=== PATIENT | female | born 1965 | race American Indian/Alaskan Native ===

== ENCOUNTER 2017-03-19 05:54 | Day surgery (SDC) | payer MEDICAID, OTHER ==
[~2017-03-19 05:54] MED LIST: Midazolam 1 MG/ML 2 ML SDV ONE; fentaNYL 100 MCG/2 ML SDV ONE
[2017-03-19] MEDS ORDERED: Sodium Chloride 0.9% 10 ML Syringe FLUSH PRN (06:00)
[2017-03-19] MEDS ORDERED: Dextrose 5%-0.45% NaCl 1,000 ML IV SCH (06:00)
[2017-03-19] MEDS ORDERED: fentaNYL 100 MCG/2 ML SDV IV ONE ×3 (07:26→16:29)
[2017-03-19] MEDS ORDERED: Midazolam 1 MG/ML 2 ML SDV IV ONE ×3 (07:27→16:29)
--- NOTE | 2017-03-19 08:08 | OR ---
DATE: 03/19/2017 PROCEDURES: Esophagogastroduodenoscopy and multiple pinch biopsies. INSTRUMENT USED: GIF-H180 Olympus video panendoscope. PREMEDICATIONS: No oral topical anesthesia used. Fentanyl 100 mcg intravenous, Versed 2 mg intravenous. Nasal 2 L O2 cannula. The procedure was done under pulse oximetry, BP recording, and court monitor. INDICATION: The patient with chronic diarrhea and Hemoccult-positive stools. Esophagogastroduodenoscopy is performed for detection of any active erosive lesions, Can esophagus and/or malignancy also under consideration, H. pylori status to be determined, small bowel biopsies to be obtained for any evidence of celiac disease, endoscopic hemostasis therapy if needed. DESCRIPTION OF PROCEDURE: The scope was passed with ease. Adequate visualization of the esophagus was made from proximal to distal areas. No upper esophageal lesions identified. No distal esophageal stricture. No uphill or downhill esophageal varices. No Nadja-Granados tear. No evidence of erosive esophagitis by Beckwourth criteria. No esophageal polyp or tumor mass identified. Z-line was seen at around 38 cm distal to the oral verge, configuration consistent with grade 1 by ZAP classification. No proximal gastric varices noted. Gastric fundus examination by retroflexion showed no polypoid lesions. No gastric ulcer, malignant mass, or vascular ectasia identified. Scattered gastric antral erosions were noted without bleeding from them. Duodenal bulb showed no ulcer. Visualized second part of the duodenum was unremarkable. Multiple pinch biopsies, 4 in number were taken from different areas of the second part of the duodenum, tissues were also obtained from the duodenal bulb at 9 and 12 o'clock positions and sent for any histopathologic evidence of celiac disease. Multiple pinch biopsies were also taken from the gastric antrum and proximal body and sent for PyloriTek test for H. pylori and histopathology. No bleeding was noted from any of the visualized areas at the completion of examination. Photographs were taken of the duodenal bulb, gastric antrum, fundus, and distal esophagus. IMPRESSION: Gastric antral erosions. The patient tolerated the procedure well. [facility] /[id number]
[2017-03-19 09:57] VITALS: BP 114/61
--- NOTE | 2017-03-19 14:08 | LETTER ---
03/19/2017 YRN [facility] [address] [place] [address] RE: ESPERANZA LONDON : 1965 Dear Wes: Ms. Esperanza London had esophagogastroduodenoscopy done this morning and she tolerated the procedure well. I herewith send a copy of the endoscopy note and photographs for your review. She is recommended to keep away from gastric irritants and is put on omeprazole 20 mg p.o. daily. Thank you. Sincerely, [facility] /[id number]
== END 2017-03-19 10:17 | disposition home or self-care (01) ==
LOC: DL.ENDO 05:54
PROVIDERS: ATTEND Internal Medicine Gastroenterology
DX: K29.50 Unspecified chronic gastritis without bleeding (principal); E66.9 Obesity, unspecified; E03.9 Hypothyroidism, unspecified; F32.9 Major depressive disorder, single episode, unspecified; J45.909 Unspecified asthma, uncomplicated; Z72.0 Tobacco use; Z90.49 Acquired absence of other specified parts of digestive tract; Z88.1 Allergy status to other antibiotic agents; Z88.8 Allergy status to other drugs, medicaments and biological substances; F17.210 Nicotine dependence, cigarettes, uncomplicated
CPT/HCPCS: 43239; 87077; J2250; J3010; J7042

== ENCOUNTER 2017-03-21 05:28 | Day surgery (SDC) | payer MEDICAID ==
[~2017-03-21 05:28] MED LIST changes: +Dextrose 5%-0.45% NaCl 1,000 ML IV SCH; -Midazolam 1 MG/ML 2 ML SDV ONE; +Sodium Chloride 0.9% 10 ML Syringe FLUSH PRN; -fentaNYL 100 MCG/2 ML SDV ONE
[2017-03-21] MEDS ORDERED: fentaNYL 100 MCG/2 ML SDV ONE (06:15)
[2017-03-21] MEDS ORDERED: Midazolam 1 MG/ML 2 ML SDV ONE (06:17)
[2017-03-21] MEDS ORDERED: fentaNYL 100 MCG/2 ML SDV IV ONE ×5 (06:27→14:43)
[2017-03-21] MEDS ORDERED: Midazolam 1 MG/ML 2 ML SDV IV ONE ×7 (06:28→14:43)
--- NOTE | 2017-03-21 09:05 | OR ---
DATE: 03/21/2017 PROCEDURE: Total colonoscopy, NBI, cold snare polypectomy, and multiple pinch biopsies. INSTRUMENT USED: CF-H180AL Olympus video colonoscope. PREMEDICATIONS: Fentanyl 150 mcg intravenous, Versed 4 mg intravenous. Nasal O2 cannula. The procedure was done under pulse oximetry, BP recording, and surveillance monitor. INDICATION: The patient with chronic diarrhea and abdominal pain, unexplained, and not responsive to medical measures. Colonoscopic examination is done for detection of any polypoid lesions and removal, biopsies to be obtained for microscopic colitis, endoscopic hemostasis therapy if needed. DESCRIPTION OF PROCEDURE: Initial rectal exam was unremarkable. Rigid anoscopy was normal. The colonoscope was passed with ease. Numerous scattered diverticula were noted in the distal left colon along with some deformity. The scope was passed with ease up to the ileocecal area, photographs were taken of the normal-appearing cecum, identified by double-bulged ileocecal folds. No bleeding was noted from any of the visualized areas at the commencement of the examination. No stricture. No vascular ectasia. No large isolated ulcerations seen. No evidence of diffuse inflammatory bowel disease in the form of friability, contact bleeding, or ulcerations. Probing the proximal sides of folds and flexures, using adequate distention and clearing up the stool material, withdrawal of the scope was made. Multiple pinch biopsies were taken from the normal-appearing mucosa of the mid transverse colon, mid descending colon, and rectosigmoid, and sent for any histopathologic evidence of microscopic colitis. In the distal descending colon, 3 mm sized benign- appearing polyp was noted, NBI views were obtained, photographs were taken, cold snare polypectomy was done, the tissue was retrieved and sent for histopathology. No bleeding was noted any of the visualized areas at the completion of examination. IMPRESSION: 1. Diverticulosis. 2. Diminutive descending colon polyp. The patient tolerated the procedure well. [facility] /[id number]
[2017-03-21 09:09] VITALS: BP 111/51
--- NOTE | 2017-03-22 09:21 | LETTER ---
03/21/2017 YRN [facility] [address] [place] [address] RE: TRAM NOLAND : 1965 Dear Ms. Harvey: Tram Lindsay Surya had colonoscopic examination done this morning and she tolerated the procedure well. I herewith send a copy of the endoscopy note and photographs for your review. Thank you. Sincerely, [facility] /[id number]
== END 2017-03-21 08:38 | disposition home or self-care (01) ==
LOC: DL.ENDO 05:28
PROVIDERS: ATTEND Internal Medicine Gastroenterology
DX: D12.4 Benign neoplasm of descending colon (principal); K57.30 Diverticulosis of large intestine without perforation or abscess without bleeding; K52.9 Noninfective gastroenteritis and colitis, unspecified; E03.9 Hypothyroidism, unspecified; E66.09 Other obesity due to excess calories; J45.909 Unspecified asthma, uncomplicated; F32.9 Major depressive disorder, single episode, unspecified; F17.210 Nicotine dependence, cigarettes, uncomplicated; G43.909 Migraine, unspecified, not intractable, without status migrainosus; Z90.49 Acquired absence of other specified parts of digestive tract; Z98.890 Other specified postprocedural states
CPT/HCPCS: 45380; 45385; J2250; J3010; J7042

== ENCOUNTER 2018-05-23 14:42 | Emergency (ER) | payer MEDICAID ==
[2018-05-23 14:54] VITALS: BP 135/73
--- NOTE | 2018-05-23 15:02 | EDM.PDOC ---
ED HPI GENERAL MEDICAL PROBLEM - General Chief Complaint: Chest Pain Stated Complaint: CHEST PAIN Time Seen by Provider: 05/23/18 15:20 Source of Information: Reports: Patient History Limitations: Reports: No Limitations - History of Present Illness INITIAL COMMENTS - FREE TEXT/NARRATIVE: This 52 yo female patient was brought to the ED by [facility] due to a 2 day history of a headache, chest pain (started today) and a history of cerebral stents placed in 2010. The patient reports that she does have a history of migraine headaches, but her migraine medications did not work. The patient was given Aspirin and Nitro by EMS. The provider from [facility] reports that she was sending the patient to the ED for a CT due to her history and possible head bleeds. The patient reports that she has no chest pain upon presentation in the ED, but continues to have a frontal headache that has not changed. Onset: Today Duration: Constant Location: Reports: Head, Chest Quality: Reports: Ache, Dull Severity: Moderate Improves with: Reports: None Worsens with: Reports: None Associated Symptoms: Reports: Chest Pain, Headaches Treatments OIL SPOT WASHER: Reports: Aspirin, Nitroglycerin Headache Pain Score (Numeric/FACES): 9 - Related Data Allergies Allergy/AdvReac Type Severity Reaction Status Date / Time aspirin Allergy Intermediate Shortness Verified 05/23/18 14:49 of Breath ibuprofen [From Motrin] Allergy Intermediate Shortness Verified 05/23/18 14:49 of Breath theophylline Allergy Intermediate Difficulty Verified 05/23/18 14:49 Breathing azithromycin [From Zithromax] Allergy Other Verified 05/23/18 14:49 lactose Allergy Other Verified 05/23/18 14:49 Home Meds: Home Meds Albuterol [Proventil HFA] 1 puff INH QID PRN 09/02/13 [History] Levothyroxine 0.125 mcg PO DAILY 09/02/13 [History] Montelukast [Singulair] 10 mg PO BEDTIME 09/02/13 [History] Venlafaxine [Effexor] 150 mg PO DAILY PRN 09/02/13 [History] Verapamil HCl [Verapamil ER] 240 mg PO BEDTIME 09/02/13 [History] Mometasone/Formoterol [Dulera 200 MCG/5 MCG] 2 puff INH BID 02/22/14 [History] Naproxen [Naprosyn] 500 mg PO BID PRN 02/15/16 [History] diphenhydrAMINE [Benadryl] 25 mg PO BEDTIME 02/15/16 [History] Albuterol [IJD: Albuterol] 2.5 mg NEB Q4HR PRN #30 nebule 02/19/16 [Rx] Eletriptan HBr [Relpax] 1 tab PO DAILY PRN 03/18/17 [History] Propranolol HCl [Propranolol HCl ER] 1 tab PO DAILY 03/18/17 [History] Magnesium Oxide 1 tab PO DAILY 03/20/17 [History] Vitamin B Complex [B Complex] 1 tab PO DAILY 03/20/17 [History] Past Medical History HEENT History: Reports: Impaired Vision, Other (See Below) Other HEENT History: Glasses Cardiovascular History: Reports: Hypertension Respiratory History: Reports: Asthma Gastrointestinal History: Reports: Chronic Diarrhea, Other (See Below) Other Gastrointestinal History: right sided inguinal hernia repair Genitourinary History: Reports: None NEWS PHOTOGRAPHER History: Reports: None Other NEWS PHOTOGRAPHER History: 2 nvd and 1 spontaneous Musculoskeletal History: Reports: Fibromyalgia Neurological History: Reports: Cerebral Aneurysms, Migraines Psychiatric History: Reports: None Endocrine/Metabolic History: Reports: Hypothyroidism, Obesity/BMI 30+ Hematologic History: Reports: None Immunologic History: Reports: None Oncologic (Cancer) History: Reports: None Dermatologic History: Reports: None - Infectious Disease History Infectious Disease History: Reports: None - Past Surgical History Head Surgeries/Procedures: Reports: None HEENT Surgical History: Reports: None Cardiovascular Surgical History: Reports: None Respiratory Surgical History: Reports: None GI Surgical History: Reports: Cholecystectomy, EGD, Hernia, Inguinal Female Surgical History: Reports: D&C Neurological Surgical History: Reports: None Other Musculoskeletal Surgeries/Procedures:: right ankle surgery Oncologic Surgical History: Reports: None Social & Family History - Family History Family Medical History: Noncontributory Endocrine/Metabolic: Reports: Diabetes, Type I - Tobacco Use Smoking Status *Q: Current Every Day Smoker Years of Tobacco use: 35 Packs/Tins Daily: 1 - Caffeine Use Caffeine Use: Reports: Coffee Other Caffeine Use: AVERAGE OF 2-4 CUPS DAILY - Recreational Drug Use Recreational Drug Use: No ED ROS GENERAL - Review of Systems Review Of Systems: ROS reveals no pertinent complaints other than HPI. ED EXAM, GENERAL - Physical Exam Exam: See Below Exam Limited By: No Limitations General Appearance: Alert, WD/WN, Moderate Distress Eye Exam: Bilateral Eye: EOMI, Normal Inspection, PERRL Ears: Normal External Exam, Normal Canal, Hearing Grossly Normal, Normal TMs Nose: Normal Inspection, Normal Mucosa, No Blood Throat/Mouth: Normal Inspection, Normal Lips, Normal Teeth, Normal Gums, Normal Oropharynx, Normal Voice, No Airway Compromise Head: Atraumatic, Normocephalic Neck: Normal Inspection, Supple, Non-Tender, Full Range of Motion Respiratory/Chest: No Respiratory Distress, Lungs Clear, Normal Breath Sounds, No Accessory Muscle Use, Chest Non-Tender Cardiovascular: Normal Peripheral Pulses, Regular Rate, Rhythm, No Edema, No Gallop, No JVD, No Murmur, No Rub GI/Abdominal: Normal Bowel Sounds, Soft, Non-Tender, No Organomegaly, No Distention, No Abnormal Bruit, No Mass (Female) Exam: Deferred Rectal (Female) Exam: Deferred Back Exam: Normal Inspection, Full Range of Motion, NT Extremities: Normal Inspection, Normal Range of Motion, Non-Tender, Normal Capillary Refill, No Pedal Edema Neurological: Alert, Oriented, CN II-XII Intact, Normal Cognition, Normal Gait, Normal Reflexes, No Motor/Sensory Deficits Psychiatric: Normal Affect, Normal Mood Skin Exam: Warm, Dry, Intact, Normal Color, No Rash Lymphatic: No Adenopathy Course - Vital Signs Last Recorded V/S: Last Vital Signs Temp 36.4 C 05/23/18 14:53 Pulse 64 05/23/18 14:53 Resp 15 05/23/18 14:53 BP 135/73 05/23/18 14:53 Pulse Ox 100 05/23/18 14:53 - Orders/Labs/Meds Orders: Active Orders 24 hr Category Date Time Status EKG Documentation Completion [RC] URGENT Care 05/23/18 14:53 Active Labs: Laboratory Tests 05/23/18 05/23/18 05/23/18 Range/Units 15:02 15:02 15:02 WBC 7.7 (5.0-10.0) 10^3/uL RBC 4.95 (4.2-5.4) 10^6/uL Hgb 15.0 (12.0-16.0) g/dL Hct 46.0 (37.0-47.0) % MCV 92.9 (80-100) fL MCH 30.3 (27.0-34.0) pg MCHC 32.6 L (33.0-35.0) g/dL Plt Count 331 (150-450) 10^3/uL Neut % (Auto) 55.0 (42.2-75.2) % Lymph % (Auto) 28.9 (20.5-50.1) % Polk % (Auto) 8.0 (2-8) % Eos % (Auto) 7.1 H (1.0-3.0) % Baso % (Auto) 1.0 (0.0-1.0) % PT 9.9 (9.0-12.0) SEC INR 1.0 (0.9-1.2) D-Dimer, Quantitative 108 (0-400) ng/mL Sodium 143 (138-146) mmol/L Potassium 3.8 (3.6-5.0) mmol/L Chloride 100 L (101-111) mmol/L Carbon Dioxide 28.0 (21.0-31.0) mmol/L Anion Gap 18.8 BUN 7 (7-18) mg/dL Creatinine 0.9 (0.6-1.3) mg/dL Est Cr Clr Drug Dosing 56.43 mL/min Estimated GFR (MDRD) > 60 BUN/Creatinine Ratio 7.77 Glucose 98 (74-105) mg/dL Calcium 8.5 (8.4-10.2) mg/dl Total Bilirubin 0.6 (0.2-1.0) mg/dL AST 38 (10-42) IU/L ALT 31 (10-60) IU/L Alkaline Phosphatase 65 (42-121) IU/L Troponin I < 0.02 (0.00-0.02) ng/ml Total Protein 7.2 (6.7-8.2) g/dl Albumin 4.1 (3.2-5.5) g/dl Globulin 3.1 Albumin/Globulin Ratio 1.32 Meds: Medications Discontinued Medications Generic Name Dose Route Start Last Admin Trade Name Freq PRN Reason Stop Dose Admin Ketorolac Tromethamine 30 mg 05/23/18 16:16 05/23/18 16:30 Toradol IVPUSH 05/23/18 16:17 30 mg ONETIME ONE Administration Departure - Departure Time of Disposition: 17:03 Disposition: Home, Self-Care 01 Condition: Fair Clinical Impression: Bronchitis Migraine headache Qualifiers: Migraine type: unspecified Status migrainosus presence: with status migrainosus Intractability: intractable Qualified Code(s): G43.911 - Migraine, unspecified, intractable, with status migrainosus Sinusitis Qualifiers: Sinusitis location: pansinusitis Chronicity: acute Recurrence: non-recurrent Qualified Code(s): J01.40 - Acute pansinusitis, unspecified - Discharge Information *PRESCRIPTION DRUG MONITORING PROGRAM REVIEWED*: Not Applicable *COPY OF PRESCRIPTION DRUG MONITORING REPORT IN PATIENT KARYN: Not Applicable Instructions: Migraine Headache, [id number], Sinusitis, Adult, [id number], Nonspecific Chest Pain, [id number], Upper Respiratory Infection, Adult, Easy- to-Read Forms: ED Department Discharge Care Plan Goals: The patient was advised of the examination, lab, EKG and CT results during the visit. The patient was given IV Toradol for her headache. The patient was given Aspirin and Nitroglycerin by EMS prior to her arrival in the ED. The patient was discharged with a script for Augmentin (875/125) to take 1 by mouth 2 times per day for 10 days. If the patient has any additional symptoms or concerns, the patient should follow-up with her primary care facility or return to the emergency department. - My Orders Last 24 Hours: My Active Orders 05/23/18 14:53 EKG Documentation Completion [RC] URGENT - Assessment/Plan Last 24 Hours: My Active Orders 05/23/18 14:53 EKG Documentation Completion [RC] URGENT
[2018-05-23 15:29] LABS: CHLORIDE,CL 100 mmol/L (101-111)
--- NOTE | 2018-05-23 16:01 | CT ---
Clinical history: 52-year-old female with headache with a history of cerebral artery aneurysm (coilin g). Scan technique: Volume acquisition of data emergency unenhanced CT scan of the head and brain obtaine d while the patient was lying supine on the Siemens multislice scanner [place], [place]. All data archived in the PACS system for storage, reformatting axial/sagittal/fred nal planes and study (bone/brain windows). Interpretation: 1. Uniformly thick bony calvarium. Aneurysm coil right temporal fossa. Inflammatory changes ethmoid a nd maxillary sinuses. 2. No sign of skull fracture or underlying brain contusion or abnormal extracerebral/intracranial epi dural or subdural hematoma. 3. Symmetric bear-white matter pattern. No signs of ischemic infarct or encephalomalacia. 4. Physiologic midline pineal calcifications and symmetric choroid plexus calcifications bilaterally. 5. No supratentorial or posterior fossa mass lesion. 6. No sign of acute intracerebral/intraventricular/subarachnoid bleed. CONCLUSION: No acute new intracranial abnormalities since 02 September 2013 exam. Paranasal sinusitis.
[2018-05-23 16:06] LABS: ANION GAP 18.8; SODIUM,NA 143 mmol/L (138-146)
[2018-05-23] MEDS ORDERED: Ketorolac 30 MG/ML SDV IVPUSH ONE (16:16)
== END 2018-05-23 17:08 | disposition home or self-care (01) ==
LOC: DL.ED 14:42
DX: G43.911 Migraine, unspecified, intractable, with status migrainosus (principal); J40 Bronchitis, not specified as acute or chronic; J01.40 Acute pansinusitis, unspecified; F17.210 Nicotine dependence, cigarettes, uncomplicated; I10 Essential (primary) hypertension; E66.9 Obesity, unspecified; Z95.5 Presence of coronary angioplasty implant and graft; Z79.899 Other long term (current) drug therapy; Z88.6 Allergy status to analgesic agent; Z88.1 Allergy status to other antibiotic agents; Z88.8 Allergy status to other drugs, medicaments and biological substances
CPT/HCPCS: 36415; 70450; 80053; 84484; 85025; 85379; 85610; 93005; 96374; 99285; J1885

== ENCOUNTER 2021-02-16 00:56 | Inpatient (IN) | payer MEDICAID ==
[2021-02-16] MEDS ORDERED: methylPREDNISolone Sodium Succinate 125 MG/2 ML SDV IVPUSH ONE (01:04)
[2021-02-16 01:28] LABS: ANION GAP 14.2 mEq/L (7-13); CHLORIDE,CL 101 mmol/L (98-107); SODIUM,NA 136 mmol/L (136-145)
--- NOTE | 2021-02-16 01:48 | EDM.PDOC ---
ED HPI GENERAL MEDICAL PROBLEM - General Chief Complaint: Respiratory Problem Stated Complaint: AMBULANCE Time Seen by Provider: 02/16/21 01:00 Source of Information: Reports: Patient History Limitations: Reports: No Limitations - History of Present Illness INITIAL COMMENTS - FREE TEXT/NARRATIVE: ED with c/o worsening of asthma, Neb not helping, feeling SOB, increased cough x 2 days productive yellow phlegm at times. 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 Denied COVID exposure. Appetite fair, No Nausea or vomiting. No Diarrhea. No chest pain. Non smoker currently. 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: Reports: Oxygen - Related Data Allergies Allergy/AdvReac Type Severity Reaction Status Date / Time aspirin Allergy Intermediate Shortness Verified 02/16/21 03:16 of Breath ibuprofen [From Motrin] Allergy Intermediate Shortness Verified 02/16/21 03:16 of Breath theophylline Allergy Intermediate Difficulty Verified 02/16/21 03:16 Breathing azithromycin [From Zithromax] Allergy Other Verified 02/16/21 03:16 lactose Allergy Other Verified 02/16/21 03:16 Home Meds: Home Meds Albuterol [Proventil HFA] 1 puff INH QID PRN 09/02/13 [History] Levothyroxine 0.125 mcg PO DAILY 09/02/13 [History] Montelukast [Singulair] 10 mg PO BEDTIME 09/02/13 [History] Naproxen [Naprosyn] 500 mg PO BID PRN 02/15/16 [History] Albuterol/Ipratropium [DuoNeb 3.0-0.5 MG/3 ML] 1 inh INH ASDIRECTED PRN 02/16/21 [History] Amitriptyline HCl 100 mg PO BEDTIME 02/16/21 [History] Fluticasone Propion/Salmeterol [Fluticasone-Salmeterol 500-50] 1 puff INH TID 02/16/21 [History] Losartan [Cozaar] 50 mg PO DAILY 02/16/21 [History] Past Medical History HEENT History: Reports: Impaired Vision, Other (See Below) Other HEENT History: Glasses Cardiovascular History: Reports: Hypertension Respiratory History: Reports: Asthma Gastrointestinal History: Reports: Chronic Diarrhea, Other (See Below) Other Gastrointestinal History: right sided inguinal hernia repair Genitourinary History: Reports: None WORKFORCE CONSULTANT History: Reports: None Other WORKFORCE CONSULTANT History: 2 nvd and 1 spontaneous Musculoskeletal History: Reports: Fibromyalgia Neurological History: Reports: Cerebral Aneurysms, Migraines Psychiatric History: Reports: None Endocrine/Metabolic History: Reports: Hypothyroidism, Obesity/BMI 30+ Hematologic History: Reports: None Immunologic History: Reports: None Oncologic (Cancer) History: Reports: None Dermatologic History: Reports: None - Infectious Disease History Infectious Disease History: Reports: None - Past Surgical History Head Surgeries/Procedures: Reports: None HEENT Surgical History: Reports: None Cardiovascular Surgical History: Reports: None Respiratory Surgical History: Reports: None GI Surgical History: Reports: Cholecystectomy, EGD, Hernia, Inguinal Female Surgical History: Reports: D&C Neurological Surgical History: Reports: None Other Musculoskeletal Surgeries/Procedures:: right ankle surgery Oncologic Surgical History: Reports: None Social & Family History - Family History Family Medical History: No Pertinent Family History Endocrine/Metabolic: Reports: Diabetes, Type I - Caffeine Use Caffeine Use: Reports: Coffee Other Caffeine Use: AVERAGE OF 2-4 CUPS DAILY ED ROS GENERAL - Review of Systems Review Of Systems: See Below Constitutional: Denies: Fever, Chills, Decreased Appetite HEENT: Reports: No Symptoms Respiratory: Reports: Shortness of Breath, Wheezing, Cough, Sputum (yellow) Cardiovascular: Reports: No Symptoms GI/Abdominal: Reports: No Symptoms Musculoskeletal: Reports: No Symptoms Skin: Reports: No Symptoms Neurological: Reports: No Symptoms Psychiatric: Reports: No Symptoms ED EXAM, GENERAL - Physical Exam Exam: See Below Exam Limited By: No Limitations General Appearance: Alert, Mild Distress, Obese Eye Exam: Bilateral Eye: EOMI, PERRL Ears: Normal External Exam, Hearing Grossly Normal Nose: Normal Inspection Throat/Mouth: Normal Inspection Head: Atraumatic, Normocephalic Neck: Normal Inspection Respiratory/Chest: Decreased Breath Sounds, Wheezing (right), Other (82% room air.) Cardiovascular: Normal Peripheral Pulses, Regular Rate, Rhythm GI/Abdominal: Normal Bowel Sounds, Soft Extremities: Normal Inspection Neurological: Alert, Oriented, Normal Cognition Psychiatric: Normal Affect, Normal Mood Skin Exam: Warm, Dry, Intact, Normal Color #1 Interpretation EKG Date: 02/16/21 Time: 00:47 Rhythm: NSR Rate (Beats/Min): 94 [place]: Normal Course - Vital Signs Last Recorded V/S: Last Vital Signs Temp 98.4 F 02/16/21 02:52 Pulse 96 02/16/21 02:52 Resp 20 02/16/21 02:52 BP 131/74 02/16/21 02:52 Pulse Ox 94 L 02/16/21 02:52 - Orders/Labs/Meds Orders: Active Orders 24 hr Category Date Time Status EKG Documentation Completion [RC] URGENT Care 02/16/21 00:35 Active PROCALCITONIN [REF] Urgent Lab 02/16/21 00:56 Received Labs: Laboratory Tests 02/16/21 02/16/21 02/16/21 Range/Units 00:37 00:56 00:56 WBC 5.0 (5.0-10.0) 10^3/uL RBC 5.33 (4.2-5.4) 10^6/uL Hgb 16.6 H D (12.0-16.0) g/dL Hct 51.1 H (37.0-47.0) % MCV 95.9 D (80-100) fL MCH 31.1 (27.0-34.0) pg MCHC 32.5 L (33.0-35.0) g/dL Plt Count 172 D (150-450) 10^3/uL Neut % (Auto) 76.5 H (42.2-75.2) % Lymph % (Auto) 15.1 L (20.5-50.1) % [place] % (Auto) 8.0 (2-8) % Eos % (Auto) 0.2 L (1.0-3.0) % Baso % (Auto) 0.2 (0.0-1.0) % PT 11.5 (9.0-12.0) SEC INR 1.1 (0.9-1.2) D-Dimer, Quantitative 447 H (0-400) ng/mL Sodium (136-145) mmol/L Potassium (3.5-5.1) mmol/L Chloride (98-107) mmol/L Carbon Dioxide (21-32) mmol/L Anion Gap (7-13) mEq/L BUN (7-18) mg/dL Creatinine (0.55-1.02) mg/dL Est Cr Clr Drug Dosing mL/min Estimated GFR (MDRD) BUN/Creatinine Ratio (No establ ref range) Glucose (70-99) mg/dL Lactic Acid (0.4-2.0) mmol/L Calcium (8.5-10.1) mg/dL Magnesium (1.8-2.4) mg/dL Ferritin (8-252) mg/mL Total Bilirubin (0.2-1.0) mg/dL AST (15-37) U/L ALT (14-59) U/L Alkaline Phosphatase (46-116) U/L Troponin I (0.000-0.056) ng/mL C-Reactive Protein (0.0-0.9) mg/dL B-Natriuretic Peptide (0-100) pg/ml Total Protein (6.4-8.2) g/dL Albumin (3.4-5.0) g/dL Globulin Albumin/Globulin Ratio SARS-CoV-2 RNA (TATIANA) Positive H (NEGATIVE) 02/16/21 02/16/21 02/16/21 Range/Units 00:56 00:56 00:56 WBC (5.0-10.0) 10^3/uL RBC (4.2-5.4) 10^6/uL Hgb (12.0-16.0) g/dL Hct (37.0-47.0) % MCV (80-100) fL MCH (27.0-34.0) pg MCHC (33.0-35.0) g/dL Plt Count (150-450) 10^3/uL Neut % (Auto) (42.2-75.2) % Lymph % (Auto) (20.5-50.1) % [place] % (Auto) (2-8) % Eos % (Auto) (1.0-3.0) % Baso % (Auto) (0.0-1.0) % PT (9.0-12.0) SEC INR (0.9-1.2) D-Dimer, Quantitative (0-400) ng/mL Sodium 136 (136-145) mmol/L Potassium 4.2 (3.5-5.1) mmol/L Chloride 101 (98-107) mmol/L Carbon Dioxide 25 (21-32) mmol/L Anion Gap 14.2 H (7-13) mEq/L BUN 7 (7-18) mg/dL Creatinine 0.90 (0.55-1.02) mg/dL Est Cr Clr Drug Dosing 70.30 mL/min Estimated GFR (MDRD) > 60 BUN/Creatinine Ratio 7.8 (No establ ref range) Glucose 120 H (70-99) mg/dL Lactic Acid 1.5 (0.4-2.0) mmol/L Calcium 8.0 L (8.5-10.1) mg/dL Magnesium 2.0 (1.8-2.4) mg/dL Ferritin (8-252) mg/mL Total Bilirubin 0.6 (0.2-1.0) mg/dL AST 218 H (15-37) U/L ALT 86 H (14-59) U/L Alkaline Phosphatase 186 H (46-116) U/L Troponin I < 0.017 (0.000-0.056) ng/mL C-Reactive Protein 14.1 H (0.0-0.9) mg/dL B-Natriuretic Peptide 35 (0-100) pg/ml Total Protein 7.1 (6.4-8.2) g/dL Albumin 2.6 L (3.4-5.0) g/dL Globulin 4.5 Albumin/Globulin Ratio 0.58 SARS-CoV-2 RNA (TATIANA) (NEGATIVE) 02/16/21 Range/Units 00:56 WBC (5.0-10.0) 10^3/uL RBC (4.2-5.4) 10^6/uL Hgb (12.0-16.0) g/dL Hct (37.0-47.0) % MCV (80-100) fL MCH (27.0-34.0) pg MCHC (33.0-35.0) g/dL Plt Count (150-450) 10^3/uL Neut % (Auto) (42.2-75.2) % Lymph % (Auto) (20.5-50.1) % [place] % (Auto) (2-8) % Eos % (Auto) (1.0-3.0) % Baso % (Auto) (0.0-1.0) % PT (9.0-12.0) SEC INR (0.9-1.2) D-Dimer, Quantitative (0-400) ng/mL Sodium (136-145) mmol/L Potassium (3.5-5.1) mmol/L Chloride (98-107) mmol/L Carbon Dioxide (21-32) mmol/L Anion Gap (7-13) mEq/L BUN (7-18) mg/dL Creatinine (0.55-1.02) mg/dL Est Cr Clr Drug Dosing mL/min Estimated GFR (MDRD) BUN/Creatinine Ratio (No establ ref range) Glucose (70-99) mg/dL Lactic Acid (0.4-2.0) mmol/L Calcium (8.5-10.1) mg/dL Magnesium (1.8-2.4) mg/dL Ferritin 305 H (8-252) mg/mL Total Bilirubin (0.2-1.0) mg/dL AST (15-37) U/L ALT (14-59) U/L Alkaline Phosphatase (46-116) U/L Troponin I (0.000-0.056) ng/mL C-Reactive Protein (0.0-0.9) mg/dL B-Natriuretic Peptide (0-100) pg/ml Total Protein (6.4-8.2) g/dL Albumin (3.4-5.0) g/dL Globulin Albumin/Globulin Ratio SARS-CoV-2 RNA (TATIANA) (NEGATIVE) Meds: Medications Discontinued Medications Generic Name Dose Route Start Last Admin Trade Name Freq PRN Reason Stop Dose Admin Dexamethasone 6 mg 02/16/21 02:15 02/16/21 03:56 Dexamethasone 4 Mg/Ml Sdv IVPUSH 02/16/21 02:16 Not Given ONETIME ONE Methylprednisolone Sodium Succinate 125 mg 02/16/21 01:04 02/16/21 01:16 Methylprednisolone Sodium Succinate 125 Mg/2 Ml Sdv IVPUSH 02/16/21 01:05 125 mg ONETIME ONE Administration - Re-Assessments/Exams Free Text/Narrative Re-Assessment/Exam: Notes improvement with oxygen. Rare cough. TC Dr Bruno, Admit acute acare. Departure - Departure Time of Disposition: :23 Disposition: Admitted As Inpatient 68 Condition: Good Clinical Impression: Pneumonia due to COVID-19 virus, Hypoxia - Discharge Information *PRESCRIPTION DRUG MONITORING PROGRAM REVIEWED*: No *COPY OF PRESCRIPTION DRUG MONITORING REPORT IN PATIENT KARYN: No Sepsis Event Note (ED) - Evaluation Sepsis Screening Result: No Definite Risk - Focused Exam Vital Signs: Vital Signs Temp Pulse Resp BP Pulse Ox 05/27/21 01:02 99.8 F 96 22 H 142/62 H 98 - My Orders Last 24 Hours: My Active Orders 02/16/21 00:35 EKG Documentation Completion [RC] URGENT 02/16/21 00:56 PROCALCITONIN [REF] Urgent - Assessment/Plan Last 24 Hours: My Active Orders 02/16/21 00:35 EKG Documentation Completion [RC] URGENT 02/16/21 00:56 PROCALCITONIN [REF] Urgent
[2021-02-16] MEDS ORDERED: Dexamethasone 4 MG/ML SDV IVPUSH ONE (02:15)
--- NOTE | 2021-02-16 02:43 | CR ---
PROCEDURE INFORMATION: Exam: XR Chest Exam date and time: 02/16/2021 1:29 AM Age: 55 years old Clinical indication: Shortness of breath; Additional info: SOB TECHNIQUE: Imaging protocol: XR of the chest. Views: 1 view. COMPARISON: CR Chest 2V 02/15/2016 7:10 PM FINDINGS: Lungs: Low lung volumes. Patchy airspace opacities throughout both lungs. Pleural spaces: Unremarkable. No pleural effusion. No pneumothorax. Heart/Mediastinum: The cardiac silhouette is mildly enlarged but is accentuated by portable AP technique. Bones/joints: Unremarkable. IMPRESSION: Patchy airspace opacities throughout both lungs suggesting multifocal pneumonia or alveolar pulmonary edema.
[2021-02-16] MEDS ORDERED: REMDESIVIR 200 MG in Sodium Chloride 0.9% 250 ML IV ONE (04:10)
[2021-02-16] MEDS ORDERED: Albuterol 6.7 GM Inhaler INH PRN (04:10)
[2021-02-16 05:06] LABS: HEMOGLOBIN A1C 6.4 % (<5.7)
[2021-02-16] MEDS: Losartan 50 MG Tab PO SCH (08:10)
[2021-02-16] MEDS: Formoterol/Mometasone 200-5 MCG 8.8 GM Inhaler IH SCH ×2 (08:12→21:37)
[2021-02-16] MEDS: Albuterol 6.7 GM Inhaler INH SCH ×4 (08:48→21:40)
[2021-02-16] MEDS ORDERED: Enoxaparin 40 MG/0.4 ML Syringe SUBCUT SCH (09:00)
[2021-02-16] MEDS ORDERED: Albuterol 6.7 GM Inhaler INH SCH (09:00)
[2021-02-16] MEDS ORDERED: Levothyroxine 125 MCG Tab PO SCH (09:00)
--- NOTE | 2021-02-16 10:44 | PCM.HP ---
H&P History of Present Illness - General Date of Service: 02/16/21 Admit Problem/Dx: Admission Diagnosis/Problem Admission Diagnosis/Problem Hypoxia - History of Present Illness Initial Comments - Free Text/Narative: 55F w/ pmh asthma, HT, GERD, cerebral aneurysm s/p coiling, hypothyroidism, morbid obesity p/w shortness of breath. Pt reports onset of dyspnea and productive cough 3 days ago. She says it feels like her asthma. Denies fevers, body aches, nausea, vomiting or diarrhea. She lives alone and denies any sick contacts. Has not been vaccinated for COVID19. ER evaluation found pt in hypoxic respiratory failure w/ diffuse infiltrates on CXR and COVID19 positive. Lower Back Pain Score (Numeric/FACES): 3 - Related Data Allergies/Adverse Reactions: Allergies Allergy/AdvReac Type Severity Reaction Status Date / Time aspirin Allergy Intermediate Shortness Verified 02/16/21 03:16 of Breath ibuprofen [From Motrin] Allergy Intermediate Shortness Verified 02/16/21 03:16 of Breath theophylline Allergy Intermediate Difficulty Verified 02/16/21 03:16 Breathing azithromycin [From Zithromax] Allergy Other Verified 02/16/21 03:16 lactose Allergy Other Verified 02/16/21 03:16 Home Medications: Home Meds Levothyroxine 125 mcg PO DAILY 09/02/13 [History] Montelukast [Singulair] 10 mg PO BEDTIME 09/02/13 [History] Naproxen [Naprosyn] 500 mg PO BID 02/15/16 [History] Albuterol Sulfate [Proair Hfa] 2 puff IH Q4HR PRN 02/16/21 [History] Albuterol/Ipratropium [DuoNeb 3.0-0.5 MG/3 ML] 1 inh INH ASDIRECTED PRN 02/16/21 [History] Amitriptyline HCl 100 mg PO BEDTIME 02/16/21 [History] Fluticasone Propion/Salmeterol [Fluticasone-Salmeterol 500-50] 1 puff INH BID 02/16/21 [History] Fluticasone Propionate [Flovent Diskus] 1 mcg NASBOTH BID 02/16/21 [History] Losartan [Cozaar] 50 mg PO DAILY 02/16/21 [History] Nicotine Polacrilex [Nicotine Gum] 2 mg BC ASDIRECTED PRN 02/16/21 [History] Past Medical History HEENT History: Reports: Impaired Vision, Other (See Below) Other HEENT History: Glasses Cardiovascular History: Reports: Hypertension Respiratory History: Reports: Asthma Gastrointestinal History: Reports: Chronic Diarrhea, Other (See Below) Other Gastrointestinal History: right sided inguinal hernia repair Genitourinary History: Reports: Other (See Below) Other Genitourinary History: Stress incontinance 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 Other OB/BYN History: 2 nvd and 1 spontaneous Musculoskeletal History: Reports: Arthritis, Fibromyalgia, Other (See Below) Other Musculoskeletal History: Low back arhtritis Neurological History: Reports: Cerebral Aneurysms, Migraines Psychiatric History: Reports: None Endocrine/Metabolic History: Reports: Hypothyroidism, Obesity/BMI 30+ Hematologic History: Reports: None Immunologic History: Reports: None Oncologic (Cancer) History: Reports: None Dermatologic History: Reports: None - Infectious Disease History Infectious Disease History: Reports: None, Novel Coronavirus - Past Surgical History Head Surgeries/Procedures: Reports: None HEENT Surgical History: Reports: None Cardiovascular Surgical History: Reports: None Respiratory Surgical History: Reports: None GI Surgical History: Reports: Cholecystectomy, EGD, Hernia, Inguinal Female Surgical History: Reports: D&C Neurological Surgical History: Reports: None Other Musculoskeletal Surgeries/Procedures:: right ankle surgery Oncologic Surgical History: Reports: None Social & Family History - Family History Family Medical History: No Pertinent Family History Endocrine/Metabolic: Reports: Diabetes, Type I - Tobacco Use Tobacco Use Status *Q: Never Tobacco User Second Hand Smoke Exposure: No - Caffeine Use Caffeine Use: Reports: None Other Caffeine Use: AVERAGE OF 2-4 CUPS DAILY - Alcohol Use Days Per Week of Alcohol Use: 2 Number of Drinks Per Day: 0 Total Drinks Per Week: 0 - Recreational Drug Use Recreational Drug Use: No H&P Review of Systems - Review of Systems: Review Of Systems: See Below General: Denies: Fever, Chills, Weakness, Night Sweats HEENT: Denies: Headaches, Sore Throat Pulmonary: Reports: Shortness of Breath, Wheezing, Cough, Sputum. Denies: Pleuritic Chest Pain, Hemoptysis Cardiovascular: Reports: Dyspnea on Exertion. Denies: Chest Pain, Edema Gastrointestinal: Denies: Abdominal Pain, Diarrhea, Nausea, Vomiting Genitourinary: Denies: Dysuria Musculoskeletal: Denies: Neck Pain Skin: Denies: Jaundice Psychiatric: Denies: Confusion Neurological: Denies: Dizziness Hematologic/Lymphatic: Denies: Easy Bleeding Exam - Exam Exam: See Below - Vital Signs Vital Signs: Last Vital Signs Temp 97.9 F 02/16/21 08:00 Pulse 88 02/16/21 08:00 Resp 22 H 02/16/21 08:00 BP 145/79 H 02/16/21 08:10 Pulse Ox 92 L 02/16/21 08:00 Weight: 235 lb 12.8 oz - Exam Quality Assessment: Supplemental Oxygen General: Alert, Oriented HEENT: Conjunctiva Clear Neck: Supple Lungs: Wheezing (tight wheezing throughout) Cardiovascular: Regular Rate, Regular Rhythm GI/Abdominal Exam: Normal Bowel Sounds, Soft, Non-Tender, No Distention, Other (morbidly obese) Back Exam: Normal Inspection Extremities: No Pedal Edema Skin: Warm, Dry, Intact Neurological: Cranial Nerves Intact Neuro Extensive - Mental Status: Alert, Oriented x3 Neuro Extensive - Motor, Sensory, Reflexes: No: Tremor Psychiatric: Alert, Normal Affect, Normal Mood - Patient Data Lab Results Last 24 hrs: Laboratory Results - last 24 hr 02/16/21 02/16/21 02/16/21 Range/Units 00:37 00:56 00:56 WBC 5.0 (5.0-10.0) 10^3/uL RBC 5.33 (4.2-5.4) 10^6/uL Hgb 16.6 H D (12.0-16.0) g/dL Hct 51.1 H (37.0-47.0) % MCV 95.9 D (80-100) fL MCH 31.1 (27.0-34.0) pg MCHC 32.5 L (33.0-35.0) g/dL Plt Count 172 D (150-450) 10^3/uL Neut % (Auto) 76.5 H (42.2-75.2) % Lymph % (Auto) 15.1 L (20.5-50.1) % [place] % (Auto) 8.0 (2-8) % Eos % (Auto) 0.2 L (1.0-3.0) % Baso % (Auto) 0.2 (0.0-1.0) % PT 11.5 (9.0-12.0) SEC INR 1.1 (0.9-1.2) D-Dimer, Quantitative 447 H (0-400) ng/mL Sodium (136-145) mmol/L Potassium (3.5-5.1) mmol/L Chloride (98-107) mmol/L Carbon Dioxide (21-32) mmol/L Anion Gap (7-13) mEq/L BUN (7-18) mg/dL Creatinine (0.55-1.02) mg/dL Est Cr Clr Drug Dosing mL/min Estimated GFR (MDRD) BUN/Creatinine Ratio (No establ ref range) Glucose (70-99) mg/dL Hemoglobin A1c (<5.7) % Lactic Acid (0.4-2.0) mmol/L Calcium (8.5-10.1) mg/dL Magnesium (1.8-2.4) mg/dL Ferritin (8-252) mg/mL Total Bilirubin (0.2-1.0) mg/dL AST (15-37) U/L ALT (14-59) U/L Alkaline Phosphatase (46-116) U/L Troponin I (0.000-0.056) ng/mL C-Reactive Protein (0.0-0.9) mg/dL B-Natriuretic Peptide (0-100) pg/ml Total Protein (6.4-8.2) g/dL Albumin (3.4-5.0) g/dL Globulin Albumin/Globulin Ratio SARS-CoV-2 RNA (TAT[place]NA) Positive H (NEGATIVE) 02/16/21 02/16/21 02/16/21 Range/Units 00:56 00:56 00:56 WBC (5.0-10.0) 10^3/uL RBC (4.2-5.4) 10^6/uL Hgb (12.0-16.0) g/dL Hct (37.0-47.0) % MCV (80-100) fL MCH (27.0-34.0) pg MCHC (33.0-35.0) g/dL Plt Count (150-450) 10^3/uL Neut % (Auto) (42.2-75.2) % Lymph % (Auto) (20.5-50.1) % [place] % (Auto) (2-8) % Eos % (Auto) (1.0-3.0) % Baso % (Auto) (0.0-1.0) % PT (9.0-12.0) SEC INR (0.9-1.2) D-Dimer, Quantitative (0-400) ng/mL Sodium 136 (136-145) mmol/L Potassium 4.2 (3.5-5.1) mmol/L Chloride 101 (98-107) mmol/L Carbon Dioxide 25 (21-32) mmol/L Anion Gap 14.2 H (7-13) mEq/L BUN 7 (7-18) mg/dL Creatinine 0.90 (0.55-1.02) mg/dL Est Cr Clr Drug Dosing 70.30 mL/min Estimated GFR (MDRD) > 60 BUN/Creatinine Ratio 7.8 (No establ ref range) Glucose 120 H (70-99) mg/dL Hemoglobin A1c (<5.7) % Lactic Acid 1.5 (0.4-2.0) mmol/L Calcium 8.0 L (8.5-10.1) mg/dL Magnesium 2.0 (1.8-2.4) mg/dL Ferritin (8-252) mg/mL Total Bilirubin 0.6 (0.2-1.0) mg/dL AST 218 H (15-37) U/L ALT 86 H (14-59) U/L Alkaline Phosphatase 186 H (46-116) U/L Troponin I < 0.017 (0.000-0.056) ng/mL C-Reactive Protein 14.1 H (0.0-0.9) mg/dL B-Natriuretic Peptide 35 (0-100) pg/ml Total Protein 7.1 (6.4-8.2) g/dL Albumin 2.6 L (3.4-5.0) g/dL Globulin 4.5 Albumin/Globulin Ratio 0.58 SARS-CoV-2 RNA ([place]AT[place]NA) (NEGATIVE) 02/16/21 02/16/21 Range/Units 00:56 00:56 WBC (5.0-10.0) 10^3/uL RBC (4.2-5.4) 10^6/uL Hgb (12.0-16.0) g/dL Hct (37.0-47.0) % MCV (80-100) fL MCH (27.0-34.0) pg MCHC (33.0-35.0) g/dL Plt Count (150-450) 10^3/uL Neut % (Auto) (42.2-75.2) % Lymph % (Auto) (20.5-50.1) % [place] % (Auto) (2-8) % Eos % (Auto) (1.0-3.0) % Baso % (Auto) (0.0-1.0) % PT (9.0-12.0) SEC INR (0.9-1.2) D-Dimer, Quantitative (0-400) ng/mL Sodium (136-145) mmol/L Potassium (3.5-5.1) mmol/L Chloride (98-107) mmol/L Carbon Dioxide (21-32) mmol/L Anion Gap (7-13) mEq/L BUN (7-18) mg/dL Creatinine (0.55-1.02) mg/dL Est Cr Clr Drug Dosing mL/min Estimated GFR (MDRD) BUN/Creatinine Ratio (No establ ref range) Glucose (70-99) mg/dL Hemoglobin A1c 6.4 H (<5.7) % Lactic Acid (0.4-2.0) mmol/L Calcium (8.5-10.1) mg/dL Magnesium (1.8-2.4) mg/dL Ferritin 305 H (8-252) mg/mL Total Bilirubin (0.2-1.0) mg/dL AST (15-37) U/L ALT (14-59) U/L Alkaline Phosphatase (46-116) U/L Troponin I (0.000-0.056) ng/mL C-Reactive Protein (0.0-0.9) mg/dL B-Natriuretic Peptide (0-100) pg/ml Total Protein (6.4-8.2) g/dL Albumin (3.4-5.0) g/dL Globulin Albumin/Globulin Ratio SARS-CoV-2 RNA ([place]AT[place]NA) (NEGATIVE) Result Diagrams: 02/16/21 00:56 02/16/21 00:56 Problem List Initiated/Reviewed/Updated: Yes Orders Last 24hrs: Active Orders 24 hr Category Date Time Status Admission Diagnosis [ADT] Stat ADT 02/16/21 02:19 Ordered Admission Status [Patient Status] [ADT] Routine ADT 02/16/21 02:19 Active Patient Status [ADT] Routine ADT 02/16/21 04:10 Active Oxygen Therapy [RC] .PRN Care 02/16/21 04:10 Active RT Post Treatment Assessment [RC] Click to Edit Care 02/16/21 04:14 Active RT Pre-Treatment Assessment [RC] Click to Edit Care 02/16/21 04:14 Active Up ad [place] [RC] ASDIRECTED Care 02/16/21 04:10 Active VTE/DVT Education [RC] Care 02/16/21 04:10 Active Vital Signs [RC] 00,04,08,12,16,20 Care 02/16/21 04:10 Active Respiratory Care Assess and Treatment [CONS] Routine Cons 02/16/21 04:10 Active Consistent Carbohydrate Diet [DIET] Diet 02/16/21 Breakfast Active CULTURE BLOOD [BC] Stat Lab 02/16/21 03:10 Received PROCALCITONIN [REF] Urgent Lab 02/16/21 00:56 Received Albuterol [Proventil HFA] Med 02/16/21 08:16 Active 0 gm INH Q4H PRN Albuterol [Proventil HFA] Med 02/16/21 09:00 Active 0 gm INH QID Amitriptyline [Elavil] Med 02/16/21 21:00 Active 100 mg PO BEDTIME Enoxaparin [Lovenox] Med 02/16/21 09:00 Active 40 mg SUBCUT DAILY Levothyroxine Med 02/17/21 09:00 Active 125 mcg PO DAILY Losartan [Cozaar] Med 02/16/21 09:00 Active 50 mg PO DAILY Mometasone/Formoterol [Dulera 200-5 MCG] Med 02/16/21 09:00 Active 2 puff IH BID Montelukast [Singulair] Med 02/16/21 21:00 Active 10 mg PO BEDTIME Remdesivir 100 mg Med 02/17/21 09:00 Active Sodium Chloride 0.9% [Normal Saline] 100 ml IV Q24H methylPREDNISolone Sod Succ [Solu-MEDROL] Med 02/16/21 14:00 Active 40 mg IVPUSH Q8H Resuscitation Status Routine Resus Stat 02/16/21 04:10 Ordered Medication Orders Albuterol (Albuterol 6.7 Gm Inhaler) 0 gm INH QID [facility] Last Admin: 02/16/21 08:48 Dose: Not Given Documented by: FABIENNE Albuterol (Albuterol 6.7 Gm Inhaler) 0 gm INH Q4H PRN PRN Reason: Shortness of Breath Amitriptyline HCl (Amitriptyline 25 Mg Tab) 100 mg PO BEDTIME [facility] Enoxaparin Sodium (Enoxaparin 40 Mg/0.4 Ml Syringe) 40 mg SUBCUT DAILY [facility] Last Admin: 02/16/21 08:12 Dose: 40 mg Documented by: FABIENNE Remdesivir 100 mg/ Sodium (Chloride) 100 mls @ 100 mls/hr IV Q24H [facility] Stop: 02/20/21 09:59 Levothyroxine Sodium (Levothyroxine 125 Mcg Tab) 125 mcg PO DAILY [facility] Losartan Potassium (Losartan 50 Mg Tab) 50 mg PO DAILY [facility] Last Admin: 02/16/21 08:10 Dose: 50 mg Documented by: FABIENNE Methylprednisolone Sodium Succinate (Methylprednisolone Sodium Succinate 40 Mg/1 Ml Sdv) 40 mg IVPUSH Q8H [facility] Mometasone Furoate/Formoterol Fumar (Formoterol/Mometasone 200-5 Mcg 8.8 Gm I nhaler) 2 puff IH BID [facility] Last Admin: 02/16/21 08:12 Dose: 2 puff Documented by: FABIENNE Montelukast Sodium (Montelukast 10 Mg Tab) 10 mg PO BEDTIME [facility] Assessment/Plan Comment:: #acute hypoxic respiratory failure 2/2 COVID19 pneumonia - start remdesivir and steroid - will use high dose solumedrol rather than dexamethasone given concurrent asthma exacerbation - o2 supp as needed - requiring 6-10L NC on admission - high risk to worsen given she presents early in disease course #acute asthma exacerbation - in setting of above - solumedrol IV q8h - albuterol inhalers w/ spacer QID and prn - c/w advair #HT / hypothyroidism - c/w home meds PPX - bariatric LMWH
[2021-02-16] MEDS: methylPREDNISolone Sodium Succinate 40 MG/1 ML SDV IVPUSH SCH ×2 (13:29→21:46)
[2021-02-16] MEDS: Montelukast 10 MG Tab PO SCH (21:38)
[2021-02-16] MEDS: Amitriptyline 25 MG Tab PO SCH (21:38)
[2021-02-16] MEDS: Enoxaparin 40 MG/0.4 ML Syringe SUBCUT SCH (21:42)
[2021-02-16] MEDS: Melatonin 3 MG Tab PO PRN (22:59)
[2021-02-17] MEDS: methylPREDNISolone Sodium Succinate 40 MG/1 ML SDV IVPUSH SCH ×3 (05:22→17:44)
[2021-02-17] MEDS: Formoterol/Mometasone 200-5 MCG 8.8 GM Inhaler IH SCH ×2 (08:00→22:18)
[2021-02-17] MEDS: Albuterol 6.7 GM Inhaler INH SCH ×4 (08:00→22:22)
[2021-02-17] MEDS: REMDESIVIR 100 MG in Sodium Chloride 0.9% 100 ML IV SCH (10:10)
[2021-02-17] MEDS: Enoxaparin 40 MG/0.4 ML Syringe SUBCUT SCH ×2 (10:11→22:19)
[2021-02-17] MEDS: Losartan 50 MG Tab PO SCH (10:11)
[2021-02-17] MEDS: Levothyroxine 125 MCG Tab PO SCH (10:17)
--- NOTE | 2021-02-17 12:14 | PCM.PN ---
- General Info Date of Service: 02/17/21 Admission Dx/Problem (Free Text): She states she feels somewhat better. O2 requirement has risen sharply in past 36h. Now on HF 50L / 80%. Eating, getting oob/chair, afebrile. - Patient Data Vitals - Most Recent: Last Vital Signs Temp 98.2 F 02/17/21 07:52 Pulse 82 02/17/21 08:00 Resp 20 02/17/21 07:52 BP 119/71 02/17/21 10:11 Pulse Ox 92 L 02/17/21 08:00 Weight - Most Recent: 235 lb 12.8 oz I&O - Last 24 Hours: Intake & Output 02/16/21 02/17/21 02/17/21 22:59 06:59 14:59 Intake Total 960 600 336 Output Total 1050 900 Balance -90 -300 336 Volodymyr Results Last 24 Hours: Microbiology 02/16/21 03:10 Aerobic Blood Culture - Preliminary Blood - Arm, Right NO GROWTH AFTER 1 DAY Anaerobic Blood Culture - Preliminary NO GROWTH AFTER 1 DAY Med Orders - Current: Current Medications Albuterol (Albuterol 6.7 Gm Inhaler) 0 gm INH QID [facility] Last Admin: 02/17/21 08:00 Dose: 2 puff Documented by: Albuterol (Albuterol 6.7 Gm Inhaler) 0 gm INH Q4H PRN PRN Reason: Shortness of Breath Amitriptyline HCl (Amitriptyline 25 Mg Tab) 100 mg PO BEDTIME [facility] Last Admin: 02/16/21 21:38 Dose: 100 mg Documented by: Enoxaparin Sodium (Enoxaparin 40 Mg/0.4 Ml Syringe) 40 mg SUBCUT BID [facility] Last Admin: 02/17/21 10:11 Dose: 40 mg Documented by: Remdesivir 100 mg/ Sodium (Chloride) 100 mls @ 100 mls/hr IV Q24H [facility] Stop: 02/20/21 09:59 Last Admin: 02/17/21 10:10 Dose: 100 mls/hr Documented by: Levothyroxine Sodium (Levothyroxine 125 Mcg Tab) 125 mcg PO DAILY [facility] Last Admin: 02/17/21 10:17 Dose: 125 mcg Documented by: Losartan Potassium (Losartan 50 Mg Tab) 50 mg PO DAILY [facility] Last Admin: 02/17/21 10:11 Dose: 50 mg Documented by: Melatonin (Melatonin 3 Mg Tab) 3 mg PO BEDTIME PRN PRN Reason: Sleep Last Admin: 02/16/21 22:59 Dose: 3 mg Documented by: Methylprednisolone Sodium Succinate (Methylprednisolone Sodium Succinate 40 Mg/1 Ml Sdv) 40 mg IVPUSH Q6H [facility] Mometasone Furoate/Formoterol Fumar (Formoterol/Mometasone 200-5 Mcg 8.8 Gm Inhaler) 2 puff IH BID [facility] Last Admin: 02/17/21 08:00 Dose: 2 puff Documented by: Montelukast Sodium (Montelukast 10 Mg Tab) 10 mg PO BEDTIME [facility] Last Admin: 02/16/21 21:38 Dose: 10 mg Documented by: Discontinued Medications Albuterol (Albuterol 6.7 Gm Inhaler) 6.7 gm INH QID [facility] Last Admin: 02/16/21 08:13 Dose: 2 puff Documented by: Albuterol (Albuterol 6.7 Gm Inhaler) 6.7 gm INH Q4H PRN PRN Reason: Shortness of Breath Dexamethasone (Dexamethasone 4 Mg/Ml Sdv) 6 mg IVPUSH ONETIME ONE Stop: 02/16/21 02:16 Last Admin: 02/16/21 03:56 Dose: Not Given Documented by: Enoxaparin Sodium (Enoxaparin 40 Mg/0.4 Ml Syringe) 40 mg SUBCUT DAILY [facility] Last Admin: 02/16/21 08:12 Dose: 40 mg Documented by: Remdesivir 200 mg/ Sodium (Chloride) 250 mls @ 250 mls/hr IV ONETIME ONE Stop: 02/16/21 05:09 Last Admin: 02/16/21 04:58 Dose: 250 mls/hr Documented by: Levothyroxine Sodium (Levothyroxine 125 Mcg Tab) 0.125 mcg PO DAILY [facility] Last Admin: 02/16/21 08:09 Dose: 0.125 mcg Documented by: Methylprednisolone Sodium Succinate (Methylprednisolone Sodium Succinate 125 Mg/2 Ml Sdv) 125 mg IVPUSH ONETIME ONE Stop: 02/16/21 01:05 Last Admin: 02/16/21 01:16 Dose: 125 mg Documented by: Methylprednisolone Sodium Succinate (Methylprednisolone Sodium Succinate 40 Mg/1 Ml Sdv) 40 mg IVPUSH Q8H [facility] Last Admin: 02/17/21 05:22 Dose: 40 mg Documented by: - Exam Quality Assessment: Supplemental Oxygen General: Alert, Oriented Neck: Supple Lungs: Wheezing (tight) Cardiovascular: Regular Rate, Regular Rhythm GI/Abdominal Exam: Normal Bowel Sounds, Soft, Non-Tender, No Distention Back Exam: Normal Inspection Extremities: No Pedal Edema Skin: Warm, Dry, Intact Neurological: No New Focal Deficit Psy/Mental Status: Alert, Normal Affect, Normal Mood - Patient Data Result Diagrams: 02/16/21 00:56 02/16/21 00:56 Volodymyr Results Last 24 hrs: Microbiology 02/16/21 03:10 Aerobic Blood Culture - Preliminary Blood - Arm, Right NO GROWTH AFTER 1 DAY Anaerobic Blood Culture - Preliminary NO GROWTH AFTER 1 DAY Sepsis Event Note - Evaluation Sepsis Screening Result: No Definite Risk - Focused Exam Vital Signs: Vital Signs Temp Pulse Resp BP BP BP Pulse Ox 02/17/21 10:11 119/71 02/17/21 08:00 82 02/17/21 07:52 98.2 F 82 20 109/59 L 92 L 02/17/21 04:51 97.8 F 90 23 H 118/80 93 L Pulse Ox 02/17/21 10:11 02/17/21 08:00 92 L 02/17/21 07:52 02/17/21 04:51 - Problem List Review Problem List Initiated/Reviewed/Updated: Yes - My Orders Last 24 Hours: My Active Orders 02/16/21 21:00 Amitriptyline [Elavil] 100 mg PO BEDTIME Enoxaparin [Lovenox] 40 mg SUBCUT BID Montelukast [Singulair] 10 mg PO BEDTIME 02/16/21 22:09 Melatonin 3 mg PO BEDTIME PRN 02/17/21 09:00 Levothyroxine 125 mcg PO DAILY Remdesivir 100 mg Sodium Chloride 0.9% [Normal Saline] 100 ml IV Q24H 02/17/21 10:20 RT Chest Physiotherapy [RC] ASDIRECTED 02/17/21 12:00 methylPREDNISolone Sod Succ [Solu-MEDROL] 40 mg IVPUSH Q6H 02/18/21 05:11 CBC W/O DIFF,HEMOGRAM [HEME] AM COMPREHENSIVE METABOLIC PN,CMP [CHEM] AM - Plan Plan:: #acute hypoxic respiratory failure 2/2 COVID19 pneumonia - c/w remdesivir - increase solumedrol q8h >>> q6h - o2 supp as needed - currently on HF 50l / 80% - high risk to worsen given she presents early in disease course #acute asthma exacerbation - in setting of above - solumedrol IV q6h - albuterol inhalers w/ spacer QID and prn - c/w advair #HT / hypothyroidism - c/w home meds PPX - bariatric LMWH
[2021-02-17] MEDS: Amitriptyline 25 MG Tab PO SCH (22:21)
[2021-02-17] MEDS: Montelukast 10 MG Tab PO SCH (22:21)
[2021-02-17] MEDS: Melatonin 3 MG Tab PO PRN (22:22)
[2021-02-18] MEDS: Sodium Chloride 0.9% 10 ML Syringe FLUSH PRN ×2 (00:48→05:58)
[2021-02-18] MEDS: methylPREDNISolone Sodium Succinate 40 MG/1 ML SDV IVPUSH SCH ×4 (00:49→17:18)
[2021-02-18 06:49] LABS: ANION GAP 12.7 mEq/L (7-13); CHLORIDE,CL 106 mmol/L (98-107); SODIUM,NA 141 mmol/L (136-145)
[2021-02-18] MEDS: Enoxaparin 40 MG/0.4 ML Syringe SUBCUT SCH ×2 (08:43→21:06)
[2021-02-18] MEDS: REMDESIVIR 100 MG in Sodium Chloride 0.9% 100 ML IV SCH (08:43)
[2021-02-18] MEDS: Levothyroxine 125 MCG Tab PO SCH (08:44)
[2021-02-18] MEDS: Losartan 50 MG Tab PO SCH (08:45)
[2021-02-18] MEDS: Formoterol/Mometasone 200-5 MCG 8.8 GM Inhaler IH SCH ×2 (08:48→21:03)
[2021-02-18] MEDS: Albuterol 6.7 GM Inhaler INH SCH ×4 (08:49→21:03)
--- NOTE | 2021-02-18 18:11 | PCM.PN ---
- General Info Date of Service: 02/18/21 Admission Dx/Problem (Free Text): Stable sats on HF 50l / 80%. Desats when moving oob/chair are less profound per RN. Looks less sick. Feels better. Eating. Wheezing less. - Patient Data Vitals - Most Recent: Last Vital Signs Temp 98.3 F 02/18/21 16:00 Pulse 83 02/18/21 16:00 Resp 20 02/18/21 16:00 BP 125/60 02/18/21 16:00 Pulse Ox 93 L 02/18/21 16:00 Weight - Most Recent: 235 lb 12.8 oz I&O - Last 24 Hours: Intake & Output 02/18/21 02/18/21 02/18/21 06:59 14:59 22:59 Intake Total 400 220 Output Total 700 400 Balance -300 -180 Lab Results Last 24 Hours: Laboratory Results - last 24 hr 02/18/21 02/18/21 Range/Units 06:10 06:10 WBC 12.4 H (5.0-10.0) 10^3/uL RBC 5.24 (4.2-5.4) 10^6/uL Hgb 16.2 H (12.0-16.0) g/dL Hct 50.4 H (37.0-47.0) % MCV 96.2 (80-100) fL MCH 30.9 (27.0-34.0) pg MCHC 32.1 L (33.0-35.0) g/dL Plt Count 270 D (150-450) 10^3/uL Sodium 141 (136-145) mmol/L Potassium 4.7 (3.5-5.1) mmol/L Chloride 106 (98-107) mmol/L Carbon Dioxide 27 (21-32) mmol/L Anion Gap 12.7 (7-13) mEq/L BUN 18 (7-18) mg/dL Creatinine 0.88 (0.55-1.02) mg/dL Est Cr Clr Drug Dosing 55.79 mL/min Estimated GFR (MDRD) > 60 BUN/Creatinine Ratio 20.5 (No establ ref range) Glucose 161 H (70-99) mg/dL Calcium 8.0 L (8.5-10.1) mg/dL Total Bilirubin 0.5 (0.2-1.0) mg/dL AST 106 H (15-37) U/L ALT 56 (14-59) U/L Alkaline Phosphatase 187 H (46-116) U/L Total Protein 6.0 L (6.4-8.2) g/dL Albumin 2.3 L (3.4-5.0) g/dL Globulin 3.7 Albumin/Globulin Ratio 0.62 Volodymyr Results Last 24 Hours: Microbiology 02/16/21 03:10 Aerobic Blood Culture - Preliminary Blood - Arm, Right NO GROWTH AFTER 2 DAYS Anaerobic Blood Culture - Preliminary NO GROWTH AFTER 2 DAYS Med Orders - Current: Current Medications Albuterol (Albuterol 6.7 Gm Inhaler) 0 gm INH QID [facility]PL[facility] Last Admin: 02/18/21 17:17 Dose: 2 puff Documented by: Albuterol (Albuterol 6.7 Gm Inhaler) 0 gm INH Q4H PRN PRN Reason: Shortness of Breath Amitriptyline HCl (Amitriptyline 25 Mg Tab) 100 mg PO BEDTIME REPLACED [facility] Last Admin: 02/17/21 22:21 Dose: 100 mg Documented by: Enoxaparin Sodium (Enoxaparin 40 Mg/0.4 Ml Syringe) 40 mg SUBCUT BID REPLACED [facility] Last Admin: 02/18/21 08:43 Dose: 40 mg Documented by: Remdesivir 100 mg/ Sodium (Chloride) 100 mls @ 100 mls/hr IV Q24H [facility]PL[facility] Stop: 02/20/21 09:59 Last Admin: 02/18/21 08:43 Dose: 100 mls/hr Documented by: Levothyroxine Sodium (Levothyroxine 125 Mcg Tab) 125 mcg PO DAILY [facility] Last Admin: 02/18/21 08:44 Dose: 125 mcg Documented by: Losartan Potassium (Losartan 50 Mg Tab) 50 mg PO DAILY [facility] Last Admin: 02/18/21 08:45 Dose: 50 mg Documented by: Melatonin (Melatonin 3 Mg Tab) 3 mg PO BEDTIME PRN PRN Reason: Sleep Last Admin: 02/17/21 22:22 Dose: 3 mg Documented by: Methylprednisolone Sodium Succinate (Methylprednisolone Sodium Succinate 40 Mg/1 Ml Sdv) 40 mg IVPUSH Q6H [facility] Last Admin: 02/18/21 17:18 Dose: 40 mg Documented by: Mometasone Furoate/Formoterol Fumar (Formoterol/Mometasone 200-5 Mcg 8.8 Gm Inhaler) 2 puff IH BID [facility]PL[facility]ED [facility] Last Admin: 02/18/21 08:48 Dose: 2 puff Documented by: Montelukast Sodium (Montelukast 10 Mg Tab) 10 mg PO BEDTIME REPLACED BY [facility] Last Admin: 02/17/21 22:21 Dose: 10 mg Documented by: Sodium Chloride (Sodium Chloride 0.9% 10 Ml Syringe) 10 ml FLUSH ASDIRECTED PRN PRN Reason: IV Use Last Admin: 02/18/21 05:58 Dose: 10 ml Documented by: Discontinued Medications Albuterol (Albuterol 6.7 Gm Inhaler) 6.7 gm INH QID REPLACED BY [facility] Last Admin: 02/16/21 08:13 Dose: 2 puff Documented by: Albuterol (Albuterol 6.7 Gm Inhaler) 6.7 gm INH Q4H PRN PRN Reason: Shortness of Breath Dexamethasone (Dexamethasone 4 Mg/Ml Sdv) 6 mg IVPUSH ONETIME ONE Stop: 02/16/21 02:16 Last Admin: 02/16/21 03:56 Dose: Not Given Documented by: Enoxaparin Sodium (Enoxaparin 40 Mg/0.4 Ml Syringe) 40 mg SUBCUT DAILY [facility]PL[facility] Last Admin: 02/16/21 08:12 Dose: 40 mg Documented by: Remdesivir 200 mg/ Sodium (Chloride) 250 mls @ 250 mls/hr IV ONETIME ONE Stop: 02/16/21 05:09 Last Admin: 02/16/21 04:58 Dose: 250 mls/hr Documented by: Levothyroxine Sodium (Levothyroxine 125 Mcg Tab) 0.125 mcg PO DAILY [facility] Last Admin: 02/16/21 08:09 Dose: 0.125 mcg Documented by: Methylprednisolone Sodium Succinate (Methylprednisolone Sodium Succinate 125 Mg/2 Ml Sdv) 125 mg IVPUSH ONETIME ONE Stop: 02/16/21 01:05 Last Admin: 02/16/21 01:16 Dose: 125 mg Documented by: Methylprednisolone Sodium Succinate (Methylprednisolone Sodium Succinate 40 Mg/1 Ml Sdv) 40 mg IVPUSH Q8H REPLACED BY [facility] Last Admin: 02/17/21 05:22 Dose: 40 mg Documented by: - Exam Quality Assessment: Supplemental Oxygen General: Alert, Oriented HEENT: Pupils Equal Neck: Supple Lungs: Wheezing (but improved air movement) Cardiovascular: Regular Rate, Regular Rhythm GI/Abdominal Exam: Normal Bowel Sounds, Soft, Non-Tender, No Distention, Other (morbidly obese) Extremities: No Pedal Edema Skin: Warm, Dry, Intact Neurological: Normal Speech Psy/Mental Status: Alert, Normal Affect, Normal Mood - Patient Data Lab Results Last 24 hrs: Laboratory Results - last 24 hr 02/18/21 02/18/21 Range/Units 06:10 06:10 WBC 12.4 H (5.0-10.0) 10^3/uL RBC 5.24 (4.2-5.4) 10^6/uL Hgb 16.2 H (12.0-16.0) g/dL Hct 50.4 H (37.0-47.0) % MCV 96.2 (80-100) fL MCH 30.9 (27.0-34.0) pg MCHC 32.1 L (33.0-35.0) g/dL Plt Count 270 D (150-450) 10^3/uL Sodium 141 (136-145) mmol/L Potassium 4.7 (3.5-5.1) mmol/L Chloride 106 (98-107) mmol/L Carbon Dioxide 27 (21-32) mmol/L Anion Gap 12.7 (7-13) mEq/L BUN 18 (7-18) mg/dL Creatinine 0.88 (0.55-1.02) mg/dL Est Cr Clr Drug Dosing 55.79 mL/min Estimated GFR (MDRD) > 60 BUN/Creatinine Ratio 20.5 (No establ ref range) Glucose 161 H (70-99) mg/dL Calcium 8.0 L (8.5-10.1) mg/dL Total Bilirubin 0.5 (0.2-1.0) mg/dL AST 106 H (15-37) U/L ALT 56 (14-59) U/L Alkaline Phosphatase 187 H (46-116) U/L Total Protein 6.0 L (6.4-8.2) g/dL Albumin 2.3 L (3.4-5.0) g/dL Globulin 3.7 Albumin/Globulin Ratio 0.62 Result Diagrams: 02/18/21 06:10 02/18/21 06:10 Volodymyr Results Last 24 hrs: Microbiology 02/16/21 03:10 Aerobic Blood Culture - Preliminary Blood - Arm, Right NO GROWTH AFTER 2 DAYS Anaerobic Blood Culture - Preliminary NO GROWTH AFTER 2 DAYS Sepsis Event Note - Evaluation Sepsis Screening Result: No Definite Risk - Focused Exam Vital Signs: Vital Signs Temp Pulse Resp BP BP BP Pulse Ox 02/18/21 16:00 98.3 F 83 20 125/60 93 L 02/18/21 12:00 97.9 F 79 20 114/53 L 92 L 02/18/21 08:45 131/70 02/18/21 08:00 98.5 F 87 20 131/87 91 L - Problem List Review Problem List Initiated/Reviewed/Updated: Yes - My Orders Last 24 Hours: My Active Orders 02/17/21 22:26 Sodium Chloride 0.9% [Saline Flush] 10 ml FLUSH ASDIRECTED PRN - Plan Plan:: #acute hypoxic respiratory failure 2/2 COVID19 pneumonia - c/w remdesivir day#3 - c/w solumedrol q6h - o2 supp as needed - currently on HF 50l / 80% - appears to have plateaued in her disease progression #acute asthma exacerbation - in setting of above - solumedrol IV q6h - albuterol inhalers w/ spacer QID and prn - c/w advair #HT / hypothyroidism - c/w home meds PPX - bariatric LMWH
[2021-02-18] MEDS: Amitriptyline 25 MG Tab PO SCH (21:04)
[2021-02-18] MEDS: Montelukast 10 MG Tab PO SCH (21:05)
[2021-02-19] MEDS: Melatonin 3 MG Tab PO PRN ×2 (00:24→21:08)
[2021-02-19] MEDS: Sodium Chloride 0.9% 10 ML Syringe FLUSH PRN ×2 (00:25→05:58)
[2021-02-19] MEDS: methylPREDNISolone Sodium Succinate 40 MG/1 ML SDV IVPUSH SCH ×4 (00:26→17:26)
[2021-02-19] MEDS: Levothyroxine 125 MCG Tab PO SCH (08:27)
[2021-02-19] MEDS: Losartan 50 MG Tab PO SCH (08:28)
[2021-02-19] MEDS: Albuterol 6.7 GM Inhaler INH SCH ×4 (08:31→20:49)
[2021-02-19] MEDS: Enoxaparin 40 MG/0.4 ML Syringe SUBCUT SCH ×2 (08:31→20:52)
[2021-02-19] MEDS: Formoterol/Mometasone 200-5 MCG 8.8 GM Inhaler IH SCH ×2 (08:31→20:54)
[2021-02-19] MEDS: REMDESIVIR 100 MG in Sodium Chloride 0.9% 100 ML IV SCH (08:32)
--- NOTE | 2021-02-19 11:23 | PCM.SN.2 ---
- Free Text/Narrative Note: START OF DOCTOR EMAMIS PROGRESS NOTE Subjective: The patient Davida that her respiratory status overall has improved compared with 05/21/2021. She currently rates her respiratory status as a 5 out of 10 if 10 is her baseline. She denies fever, rigors, nausea, vomiting, abdominal pain, chest pain. She states that she exhibits wheeze and cough with activity, I. E. Walking to the restroom. Her cough is productive of yellow sputum. I explained to the patient her current medical condition and plan of care and I have answered all of her questions Objective: General: -Alert -No acute distress -No dyspnea -No tachypnea -Morbidly obese Heart: -Regular rate -Regular rhythm -No murmurs -No gallops -No rubs Lungs: -No wheeze -No rhonchi -No rales -Distant breath sounds bilaterally Abdomen: -Normal bowel sounds in all four quadrants -No rebound -No guarding -No tenderness Extremities: -2/4 pulse in all four extremities -No clubbing -No cyanosis -No edema Additional Details / Additional Findings / Exceptions / Miscellaneous: Pertinent Laboratory Results / Pertinent Radiology Results / Pertinent Diagnostic Results / Pertinent Vital Signs: Patient saturating 94% on 45 L/min via nasal cannulahigh flow with FiO2 of 77% Assessment / Plan: COVID-19 pneumonia. Proventil HFA: 90 mcg/spray: 2 puffs 4 times daily plus Solu-Medrol 40 mg IV every 6 hours plus remdesivir 100 mg IV daily. Incentive spirometer to be used 10 times hourly while awake Asthma/COPD. Solu-Medrol 40 mg IV every 6 hours plus Dulera 2 puffs twice daily plus singular 10 mg p.o. nightly Erythrocytosis. Will monitor hemoglobin levels intermittently. IV normal saline 100 mL/h Transaminitis. This may be sequelae of COVID-19 infection. Will monitor LFTs periodically with CMP Obesity. Patient becomes regarding left eye modification Hypothyroidism. Synthroid 125 mg p.o. daily Hypertension. Cozaar 50 mg p.o. daily Fibromyalgia History migraine History of subarachnoid hemorrhage/cerebral aneurysm, status post coiling GERD. Protonix 40 mg p.o. daily Osteoarthritis Depression. Amitriptyline 100 mg p.o. nightly Seasonal allergies Diverticulosis Hyperlipidemia Hepatic steatosis DVT prophylaxis. Lovenox 40 mg subcutaneously twice daily Disposition: END OF DOCTOR EMAMIS PROGRESS NOTE
[2021-02-19] MEDS: Sodium Chloride 0.9% 1,000 ML IV SCH (20:32)
[2021-02-19] MEDS: Montelukast 10 MG Tab PO SCH (20:49)
[2021-02-19] MEDS: Amitriptyline 25 MG Tab PO SCH (20:49)
[2021-02-20] MEDS: methylPREDNISolone Sodium Succinate 40 MG/1 ML SDV IVPUSH SCH ×4 (00:02→17:45)
[2021-02-20] MEDS: Pantoprazole 40 MG Tab.CR PO SCH (05:26)
[2021-02-20] MEDS: Sodium Chloride 0.9% 1,000 ML IV SCH ×2 (05:28→18:40)
[2021-02-20] MEDS: Albuterol 6.7 GM Inhaler INH PRN ×2 (05:33→10:46)
[2021-02-20 07:23] LABS: ANION GAP 13.4 mEq/L (7-13); CHLORIDE,CL 106 mmol/L (98-107); SODIUM,NA 142 mmol/L (136-145)
[2021-02-20] MEDS: Losartan 50 MG Tab PO SCH (08:34)
[2021-02-20] MEDS: Levothyroxine 125 MCG Tab PO SCH (08:34)
[2021-02-20] MEDS: Enoxaparin 40 MG/0.4 ML Syringe SUBCUT SCH ×2 (08:35→20:42)
--- NOTE | 2021-02-20 08:35 | PCM.SN.2 ---
- Free Text/Narrative Note: START OF DOCTOR RAMSEY PROGRESS NOTE Subjective: The patient Davida that her respiratory status has improved compared to my encounter with her on February 19, 2021. She currently rates her respiratory status is a 6 out of 10 of 10 is her baseline. She denies fever, rigors, nausea, vomiting, abdominal pain, chest pain. She states that she has occasional cough which is productive of yellow sputum as well as wheeze. I explained to the patient her current medical condition and plan of care and I have answered all of her questions Objective: General: -Alert -No acute distress -No dyspnea -No tachypnea -Morbidly obese Heart: -Regular rate -Regular rhythm -No murmurs -No gallops -No rubs Lungs: -No wheeze -Scant bilateral rhonchi -No rales -Distant breath sounds bilaterally Abdomen: -Normal bowel sounds in all four quadrants -No rebound -No guarding -No tenderness Extremities: -2/4 pulse in all four extremities -No clubbing -No cyanosis -No edema Additional Details / Additional Findings / Exceptions / Miscellaneous: Pertinent Laboratory Results / Pertinent Radiology Results / Pertinent Diagno stic Results / Pertinent Vital Signs: Respiration 24, patient saturating 94% on high flow oxygen via nasal cannula at 35 L/min with FiO2 of 78, white blood cell count 10.4, AST 148, ALT 103, alkaline phosphatase 225 Assessment / Plan: COVID-19 pneumonia. Proventil HFA: 90 mcg/spray: 2 puffs 4 times daily plus Solu-Medrol 40 mg IV every 6 hours plus remdesivir 100 mg IV daily plus doxycycline 100 mg p.o. twice daily. Incentive spirometer to be used 10 times hourly while awake Asthma/COPD. Solu-Medrol 40 mg IV every 6 hours plus Dulera 2 puffs twice daily plus singular 10 mg p.o. nightly Erythrocytosis. Will monitor hemoglobin levels intermittently. IV normal saline 100 mL/h Transaminitis. This may be sequelae of COVID-19 infection. Will monitor LFTs periodically with CMP Obesity. Patient becomes regarding left eye modification Hypothyroidism. Synthroid 125 mg p.o. daily Hypertension. Cozaar 50 mg p.o. daily Fibromyalgia History migraine History of subarachnoid hemorrhage/cerebral aneurysm, status post coiling GERD. Protonix 40 mg p.o. daily Osteoarthritis Depression. Amitriptyline 100 mg p.o. nightly Seasonal allergies Diverticulosis Hyperlipidemia Hepatic steatosis DVT prophylaxis. Lovenox 40 mg subcutaneously twice daily Disposition: END OF DOCTOR EMAMIS PROGRESS NOTE
[2021-02-20] MEDS: Albuterol 6.7 GM Inhaler INH SCH ×4 (08:36→20:42)
[2021-02-20] MEDS: Formoterol/Mometasone 200-5 MCG 8.8 GM Inhaler IH SCH ×2 (08:36→20:46)
[2021-02-20] MEDS: REMDESIVIR 100 MG in Sodium Chloride 0.9% 100 ML IV SCH (08:41)
[2021-02-20] MEDS: Doxycycline Monohydrate 100 MG Cap PO SCH ×2 (10:28→20:45)
[2021-02-20] MEDS: Amitriptyline 25 MG Tab PO SCH (20:45)
[2021-02-20] MEDS: Montelukast 10 MG Tab PO SCH (20:45)
[2021-02-20] MEDS: Melatonin 3 MG Tab PO PRN (21:24)
[2021-02-21] MEDS: methylPREDNISolone Sodium Succinate 40 MG/1 ML SDV IVPUSH SCH ×4 (00:42→17:38)
[2021-02-21] MEDS: Albuterol 6.7 GM Inhaler INH PRN ×3 (00:54→15:20)
[2021-02-21] MEDS: Sodium Chloride 0.9% 1,000 ML IV SCH ×2 (05:36→15:21)
[2021-02-21] MEDS: Pantoprazole 40 MG Tab.CR PO SCH (05:38)
[2021-02-21 07:28] LABS: ANION GAP 13.1 mEq/L (7-13); CHLORIDE,CL 107 mmol/L (98-107); SODIUM,NA 142 mmol/L (136-145)
--- NOTE | 2021-02-21 08:30 | PCM.SN.2 ---
- Free Text/Narrative Note: START OF DOCTOR RAMSEY PROGRESS NOTE Subjective: The patient Davida that her respiratory status remains unchanged compared to my encounter with her on January 23.1. She currently rates her respiratory status is a 4 out of 10 at times her baseline. Overnight she denies fever, rigors, nausea, vomiting, abdominal pain, chest pain. She states that she exhibits mild wheeze and has occasional cough productive of yellow sputum. I explained to the patient her current medical condition and plan of care have answered all of her questions Objective: General: -Alert -No acute distress -No dyspnea -No tachypnea -Morbidly obese Heart: -Regular rate -Regular rhythm -No murmurs -No gallops -No rubs Lungs: -No wheeze -Scant bilateral rhonchi -No rales -Distant breath sounds bilaterally Abdomen: -Normal bowel sounds in all four quadrants -No rebound -No guarding -No tenderness Extremities: -2/4 pulse in all four extremities -No clubbing -No cyanosis -No edema Additional Details / Additional Findings / Exceptions / Miscellaneous: Pertinent Laboratory Results / Pertinent Radiology Results / Pertinent D iagnostic Results / Pertinent Vital Signs: Respirations 28, patient saturating 91% on high flow nasal cannula at 30 L/min with FiO2 of 73, AST 87, ALT 84, alkaline phosphatase 230 Assessment / Plan: COVID-19 pneumonia. Proventil HFA: 90 mcg/spray: 2 puffs 4 times daily plus Solu-Medrol 40 mg IV every 6 hours plus remdesivir 100 mg IV daily plus doxycycline 100 mg p.o. twice daily. Incentive spirometer to be used 10 times hourly while awake Asthma/COPD. Solu-Medrol 40 mg IV every 6 hours plus Dulera 2 puffs twice daily plus singular 10 mg p.o. nightly Erythrocytosis. Will monitor hemoglobin levels intermittently. IV normal saline 100 mL/h Transaminitis. This may be sequelae of COVID-19 infection. Will monitor LFTs periodically with CMP Obesity. Patient becomes regarding left eye modification Hypothyroidism. Synthroid 125 mg p.o. daily Hypertension. Cozaar 50 mg p.o. daily Fibromyalgia History migraine History of subarachnoid hemorrhage/cerebral aneurysm, status post coiling GERD. Protonix 40 mg p.o. daily Osteoarthritis Depression. Amitriptyline 100 mg p.o. nightly Seasonal allergies Diverticulosis Hyperlipidemia Hepatic steatosis DVT prophylaxis. Lovenox 40 mg subcutaneously twice daily Disposition: END OF DOCTOR EMAMIS PROGRESS NOTE
[2021-02-21] MEDS: Losartan 50 MG Tab PO SCH (10:02)
[2021-02-21] MEDS: Levothyroxine 125 MCG Tab PO SCH (10:02)
[2021-02-21] MEDS: Doxycycline Monohydrate 100 MG Cap PO SCH ×2 (10:02→21:15)
[2021-02-21] MEDS: Enoxaparin 40 MG/0.4 ML Syringe SUBCUT SCH ×2 (10:03→21:16)
[2021-02-21] MEDS: Formoterol/Mometasone 200-5 MCG 8.8 GM Inhaler IH SCH ×2 (10:04→21:19)
[2021-02-21] MEDS: Albuterol 6.7 GM Inhaler INH SCH ×4 (10:05→21:19)
[2021-02-21] MEDS: Amitriptyline 25 MG Tab PO SCH (21:15)
[2021-02-21] MEDS: Montelukast 10 MG Tab PO SCH (21:16)
[2021-02-21] MEDS: Melatonin 3 MG Tab PO PRN (21:30)
[2021-02-22] MEDS: methylPREDNISolone Sodium Succinate 40 MG/1 ML SDV IVPUSH SCH ×5 (00:51→23:58)
[2021-02-22] MEDS: Sodium Chloride 0.9% 1,000 ML IV SCH (02:35)
[2021-02-22] MEDS: Pantoprazole 40 MG Tab.CR PO SCH (06:20)
[2021-02-22 07:24] LABS: ANION GAP 11.9 mEq/L (7-13); CHLORIDE,CL 107 mmol/L (98-107); SODIUM,NA 141 mmol/L (136-145)
[2021-02-22] MEDS: Enoxaparin 40 MG/0.4 ML Syringe SUBCUT SCH ×2 (08:09→22:08)
[2021-02-22] MEDS: Levothyroxine 125 MCG Tab PO SCH (08:10)
[2021-02-22] MEDS: Losartan 50 MG Tab PO SCH ×2 (08:10→10:52)
[2021-02-22] MEDS: Doxycycline Monohydrate 100 MG Cap PO SCH ×2 (08:10→22:06)
[2021-02-22] MEDS: Formoterol/Mometasone 200-5 MCG 8.8 GM Inhaler IH SCH ×2 (08:11→22:10)
[2021-02-22] MEDS: Albuterol 6.7 GM Inhaler INH SCH ×4 (08:12→22:06)
--- NOTE | 2021-02-22 08:27 | PCM.SN.2 ---
- Free Text/Narrative Note: START OF DOCTOR EMAMIS PROGRESS NOTE Subjective: The patient currently rates her respiratory status is a 6 out of 10 at times her baseline. Overnight she denies fever, rigors, nausea, vomiting, wheeze, abdominal pain, chest pain. She admits to cough which is productive of yellow sputum. I explained to the patient her current medical condition and plan of care and I have answered all her questions Objective: General: -Alert -No acute distress -No dyspnea -No tachypnea -Morbidly obese Heart: -Regular rate -Regular rhythm -No murmurs -No gallops -No rubs Lungs: -No wheeze -No rhonchi -No rales -Distant breath sounds bilaterally Abdomen: -Normal bowel sounds in all four quadrants -No rebound -No guarding -No tenderness Extremities: -2/4 pulse in all four extremities -No clubbing -No cyanosis -No edema Additional Details / Additional Findings / Exceptions / Miscellaneous: Pertinent Laboratory Results / Pertinent Radiology Results / Pertinent Diagnostic Results / Pertinent Vital Signs: Blood pressure 151/86, respirations 22, patient saturating 94% on high flow nasal cannula at 30 L/min with FiO2 of 69, white blood cell count 1.3, AST 59, ALT 65, alkaline phosphatase 225 Assessment / Plan: COVID-19 pneumonia. Proventil HFA: 90 mcg/spray: 2 puffs 4 times daily plus Solu-Medrol 40 mg IV every 6 hours plus doxycycline 100 mg p.o. twice daily. Patient status post treatment with remdesivir. Incentive spirometer to be used 10 times hourly while awake Asthma/COPD. Solu-Medrol 40 mg IV every 6 hours plus Dulera 2 puffs twice daily plus singular 10 mg p.o. nightly Erythrocytosis. Will monitor hemoglobin levels intermittently. IV normal saline 100 mL/h Transaminitis. This may be sequelae of COVID-19 infection. Will monitor LFTs periodically with CMP Obesity. Patient becomes regarding left eye modification Hypothyroidism. Synthroid 125 mg p.o. daily Hypertension. Cozaar 100 mg p.o. daily Fibromyalgia History migraine History of subarachnoid hemorrhage/cerebral aneurysm, status post coiling GERD. Protonix 40 mg p.o. daily Osteoarthritis Depression. Amitriptyline 100 mg p.o. nightly Seasonal allergies Diverticulosis Hyperlipidemia Hepatic steatosis DVT prophylaxis. Lovenox 40 mg subcutaneously twice daily Disposition: END OF DOCTOR EMAMIS PROGRESS NOTE
[2021-02-22] MEDS: Albuterol 6.7 GM Inhaler INH PRN (14:42)
[2021-02-22] MEDS: Montelukast 10 MG Tab PO SCH (22:05)
[2021-02-22] MEDS: Amitriptyline 25 MG Tab PO SCH (22:05)
[2021-02-22] MEDS: Melatonin 3 MG Tab PO PRN (22:07)
[2021-02-22] MEDS: Sodium Chloride 0.9% 10 ML Syringe FLUSH PRN (23:57)
[2021-02-23] MEDS: Pantoprazole 40 MG Tab.CR PO SCH (05:27)
[2021-02-23] MEDS: methylPREDNISolone Sodium Succinate 40 MG/1 ML SDV IVPUSH SCH ×4 (05:28→23:24)
[2021-02-23] MEDS: Sodium Chloride 0.9% 10 ML Syringe FLUSH PRN ×5 (05:29→23:24)
[2021-02-23] MEDS: Albuterol 6.7 GM Inhaler INH PRN (05:34)
[2021-02-23 07:09] LABS: ANION GAP 12.1 mEq/L (7-13); CHLORIDE,CL 107 mmol/L (98-107); SODIUM,NA 142 mmol/L (136-145)
--- NOTE | 2021-02-23 09:15 | PCM.SN.2 ---
- Free Text/Narrative Note: START OF DOCTOR RAMSEY PROGRESS NOTE Subjective: The patient Davida that her respiratory status has improved compared to my encounter with her on February 22, 2021. She currently rates her respiratory status as a 7 out of 10 at times her baseline. Overnight she denies fever, rigors, nausea, vomiting, abdominal pain, chest pain. She admits to cough which is productive of yellow sputum sputum as well as wheeze. I explained to the patient her current medical condition and plan of care and I have answered all of her questions Objective: General: -Alert -No acute distress -No dyspnea -No tachypnea -Morbidly obese Heart: -Regular rate -Regular rhythm -No murmurs -No gallops -No rubs Lungs: -Scant bilateral wheeze -No rhonchi -No rales -Distant breath sounds bilaterally Abdomen: -Normal bowel sounds in all four quadrants -No rebound -No guarding -No tenderness Extremities: -2/4 pulse in all four extremities -No clubbing -No cyanosis -No edema Additional Details / Additional Findings / Exceptions / Miscellaneous: Pertinent Laboratory Results / Pertinent Radiology Results / Pertinent Diagnostic Results / Pertinent Vital Signs: Blood pressure 149/80, respirations 28, 88% on high flow nasal cannula at 30 L/min with FiO2 of 60%, AST 62, ALT 61, alkaline phosphatase 192 Assessment / Plan: COVID-19 pneumonia. Proventil HFA: 90 mcg/spray: 2 puffs 4 times daily plus Solu-Medrol 40 mg IV every 6 hours plus doxycycline 100 mg p.o. twice daily. Patient status post treatment with remdesivir. Incentive spirometer to be used 10 times hourly while awake Asthma/COPD. Solu-Medrol 40 mg IV every 6 hours plus Dulera 2 puffs twice daily plus singular 10 mg p.o. nightly Erythrocytosis. Will monitor hemoglobin levels intermittently Transaminitis. This may be sequelae of COVID-19 infection. Will monitor LFTs periodically with CMP Obesity. Patient becomes regarding left eye modification Hypothyroidism. Synthroid 125 mg p.o. daily Hypertension. Cozaar 100 mg p.o. daily plus hydralazine 50 mg p.o. every 8 hours Fibromyalgia History migraine History of subarachnoid hemorrhage/cerebral aneurysm, status post coiling GERD. Protonix 40 mg p.o. daily Osteoarthritis Depression. Amitriptyline 100 mg p.o. nightly Seasonal allergies Diverticulosis Hyperlipidemia Hepatic steatosis DVT prophylaxis. Lovenox 40 mg subcutaneously twice daily Disposition: END OF DOCTOR EMAMIS PROGRESS NOTE
[2021-02-23] MEDS: hydrALAZINE 25 MG Tab PO SCH ×3 (10:00→22:00)
[2021-02-23] MEDS: Losartan 50 MG Tab PO SCH (10:01)
[2021-02-23] MEDS: Doxycycline Monohydrate 100 MG Cap PO SCH ×2 (10:01→22:01)
[2021-02-23] MEDS: Levothyroxine 125 MCG Tab PO SCH (10:02)
[2021-02-23] MEDS: Enoxaparin 40 MG/0.4 ML Syringe SUBCUT SCH ×2 (10:02→22:04)
[2021-02-23] MEDS: Albuterol 6.7 GM Inhaler INH SCH ×4 (10:04→22:02)
[2021-02-23] MEDS: Formoterol/Mometasone 200-5 MCG 8.8 GM Inhaler IH SCH ×2 (10:04→22:02)
--- NOTE | 2021-02-23 15:04 | CR ---
PROCEDURE INFORMATION: Exam: XR Chest Exam date and time: 02/23/2021 2:47 PM Age: 55 years old Clinical indication: Condition or disease; Other: Covid; Additional info: Change in lungs sounds. TECHNIQUE: Imaging protocol: XR of the chest. Views: 1 view. COMPARISON: CR Chest 1V Frontal 02/16/2021 1:29 AM FINDINGS: Lungs: There are extensive nonspecific ground-glass opacities in both lungs. This is more pronounced than the prior study. Pleural spaces: There are no pleural effusions present. Heart/Mediastinum: The heart is not enlarged. Bones/joints: Unremarkable IMPRESSION: Nonspecific extensive ground-glass opacities in the lungs. The differential diagnosis includes viral pneumonia.
[2021-02-23] MEDS: Amitriptyline 25 MG Tab PO SCH (21:59)
[2021-02-23] MEDS: Montelukast 10 MG Tab PO SCH (21:59)
[2021-02-23] MEDS: Melatonin 3 MG Tab PO PRN (22:02)
[2021-02-24] MEDS: Sodium Chloride 0.9% 10 ML Syringe FLUSH PRN (05:37)
[2021-02-24] MEDS: methylPREDNISolone Sodium Succinate 40 MG/1 ML SDV IVPUSH SCH ×4 (05:38→23:26)
[2021-02-24] MEDS: Albuterol 6.7 GM Inhaler INH PRN (05:41)
[2021-02-24] MEDS: Pantoprazole 40 MG Tab.CR PO SCH (05:45)
[2021-02-24] MEDS: hydrALAZINE 25 MG Tab PO SCH ×4 (05:46→21:52)
--- NOTE | 2021-02-24 08:05 | PCM.SN.2 ---
- Free Text/Narrative Note: START OF DOCTOR EMAMIS PROGRESS NOTE Subjective: The patient currently rates her respiratory status as a 7 out of 10 of 10 is her baseline. She offers no new complaints. She denies fever, rigors, nausea, vomiting, wheeze, abdominal pain, chest pain. She admits to cough which is productive of yellow sputum. I explained to the patient her current medical condition and plan of care and I have answered all of her questions Objective: General: -Alert -No acute distress -No dyspnea -No tachypnea -Morbidly obese Heart: -Regular rate -Regular rhythm -No murmurs -No gallops -No rubs Lungs: -Scant bilateral wheeze -No rhonchi -No rales -Distant breath sounds bilaterally Abdomen: -Normal bowel sounds in all four quadrants -No rebound -No guarding -No tenderness Extremities: -2/4 pulse in all four extremities -No clubbing -No cyanosis -No edema Additional Details / Additional Findings / Exceptions / Miscellaneous: Pertinent Laboratory Results / Pertinent Radiology Results / Pertinent Diagnostic Results / Pertinent Vital Signs: Blood pressure 144/89, respirations 28, patient saturating 81% on high flow nasal cannula at 30 L/min with FiO2 of 60% Assessment / Plan: COVID-19 pneumonia. Proventil HFA: 90 mcg/spray: 2 puffs 4 times daily plus Solu-Medrol 40 mg IV every 6 hours plus doxycycline 100 mg p.o. twice daily. Patient status post treatment with remdesivir. Incentive spirometer to be used 10 times hourly while awake Asthma/COPD. Solu-Medrol 20 mg IV every 6 hours plus Dulera 2 puffs twice daily plus singular 10 mg p.o. nightly Erythrocytosis. Will monitor hemoglobin levels intermittently Transaminitis. This may be sequelae of COVID-19 infection. Will monitor LFTs periodically with CMP Obesity. Patient becomes regarding left eye modification Hypothyroidism. Synthroid 125 mg p.o. daily Hypertension. Cozaar 100 mg p.o. daily plus hydralazine 100 mg p.o. every 8 hours Fibromyalgia History migraine History of subarachnoid hemorrhage/cerebral aneurysm, status post coiling GERD. Protonix 40 mg p.o. daily Osteoarthritis Depression. Amitriptyline 100 mg p.o. nightly Seasonal allergies Diverticulosis Hyperlipidemia Hepatic steatosis DVT prophylaxis. Lovenox 40 mg subcutaneously twice daily Disposition: END OF DOCTOR EMAMIS PROGRESS NOTE
[2021-02-24] MEDS: Albuterol 6.7 GM Inhaler INH SCH ×4 (08:36→20:17)
[2021-02-24] MEDS: Enoxaparin 40 MG/0.4 ML Syringe SUBCUT SCH ×2 (08:37→21:53)
[2021-02-24] MEDS: Formoterol/Mometasone 200-5 MCG 8.8 GM Inhaler IH SCH ×2 (08:37→21:53)
[2021-02-24] MEDS: Levothyroxine 125 MCG Tab PO SCH (08:38)
[2021-02-24] MEDS: Doxycycline Monohydrate 100 MG Cap PO SCH ×2 (08:38→21:53)
[2021-02-24] MEDS: Losartan 50 MG Tab PO SCH (08:38)
[2021-02-24] MEDS: Amitriptyline 25 MG Tab PO SCH (21:52)
[2021-02-24] MEDS: Montelukast 10 MG Tab PO SCH (21:52)
[2021-02-25] MEDS: hydrALAZINE 25 MG Tab PO SCH ×3 (05:07→21:10)
[2021-02-25] MEDS: Pantoprazole 40 MG Tab.CR PO SCH (05:07)
[2021-02-25] MEDS: methylPREDNISolone Sodium Succinate 40 MG/1 ML SDV IVPUSH SCH ×3 (05:08→17:28)
[2021-02-25 07:07] LABS: ANION GAP 11.1 mEq/L (7-13); CHLORIDE,CL 106 mmol/L (98-107); SODIUM,NA 140 mmol/L (136-145)
--- NOTE | 2021-02-25 07:19 | PCM.SN.2 ---
- Free Text/Narrative Note: START OF DOCTOR MELBAMIPaulino PROGRESS NOTE Subjective: The patient Davida that her respiratory status is unchanged compared to my encounter with her on 06/26/2021. She currently rates her respiratory status as a 7 out of 10 at times her baseline. She denies fever, rigors, nausea, vomiting, abdominal pain, chest pain, diarrhea. She admits to cough productive of yellow sputum as well as wheeze with ambulation. I explained to the patient her current medical condition and plan of care and I have answered all her que stions Objective: General: -Alert -No acute distress -No dyspnea -No tachypnea -Morbidly obese Heart: -Regular rate -Regular rhythm -No murmurs -No gallops -No rubs Lungs: -Scant bilateral wheeze -No rhonchi -No rales -Distant breath sounds bilaterally Abdomen: -Normal bowel sounds in all four quadrants -No rebound -No guarding -No tenderness Extremities: -2/4 pulse in all four extremities -No clubbing -No cyanosis -No edema Additional Details / Additional Findings / Exceptions / Miscellaneous: Respiration 32, patient satting 95% on high flow nasal cannula at 30 L/min with FiO2 80%, AST 74, ALT 69, alkaline phosphatase 163 Assessment / Plan: COVID-19 pneumonia. Proventil HFA: 90 mcg/spray: 2 puffs 4 times daily plus Solu-Medrol 40 mg IV every 6 hours plus doxycycline 100 mg p.o. twice daily. Patient status post treatment with remdesivir. Incentive spirometer to be used 10 times hourly while awake Asthma/COPD. Solu-Medrol 20 mg IV every 6 hours plus Dulera 2 puffs twice daily plus singular 10 mg p.o. nightly Erythrocytosis. Will monitor hemoglobin levels intermittently Transaminitis. This may be sequelae of COVID-19 infection. Will monitor LFTs periodically with CMP Obesity. Patient becomes regarding left eye modification Hypothyroidism. Synthroid 125 mg p.o. daily Hypertension. Cozaar 100 mg p.o. daily plus hydralazine 100 mg p.o. every 8 hours Fibromyalgia History migraine History of subarachnoid hemorrhage/cerebral aneurysm, status post coiling GERD. Protonix 40 mg p.o. daily Osteoarthritis Depression. Amitriptyline 100 mg p.o. nightly Seasonal allergies Diverticulosis Hyperlipidemia Hepatic steatosis DVT prophylaxis. Lovenox 40 mg subcutaneously twice daily Disposition: END OF DOCTOR EMAMIS PROGRESS NOTE
[2021-02-25] MEDS: Losartan 50 MG Tab PO SCH (08:49)
[2021-02-25] MEDS: Levothyroxine 125 MCG Tab PO SCH (08:50)
[2021-02-25] MEDS: Formoterol/Mometasone 200-5 MCG 8.8 GM Inhaler IH SCH ×2 (08:50→21:08)
[2021-02-25] MEDS: Doxycycline Monohydrate 100 MG Cap PO SCH ×2 (08:50→21:09)
[2021-02-25] MEDS: Enoxaparin 40 MG/0.4 ML Syringe SUBCUT SCH ×2 (08:51→21:09)
[2021-02-25] MEDS: Albuterol 6.7 GM Inhaler INH SCH ×4 (08:53→21:10)
[2021-02-25] MEDS: Sodium Chloride 0.9% 10 ML Syringe FLUSH PRN ×2 (12:39→17:28)
[2021-02-25] MEDS: Amitriptyline 25 MG Tab PO SCH (21:09)
[2021-02-25] MEDS: Montelukast 10 MG Tab PO SCH (21:10)
[2021-02-25] MEDS: Albuterol 6.7 GM Inhaler INH PRN (22:06)
[2021-02-26] MEDS: methylPREDNISolone Sodium Succinate 40 MG/1 ML SDV IVPUSH SCH ×5 (00:44→23:54)
[2021-02-26] MEDS: hydrALAZINE 25 MG Tab PO SCH ×3 (05:54→22:04)
[2021-02-26] MEDS: Pantoprazole 40 MG Tab.CR PO SCH (05:55)
[2021-02-26 07:04] LABS: ANION GAP 11.3 mEq/L (7-13); CHLORIDE,CL 105 mmol/L (98-107); SODIUM,NA 140 mmol/L (136-145)
--- NOTE | 2021-02-26 07:59 | PCM.SN.2 ---
- Free Text/Narrative Note: START OF DOCTOR EMAMIS PROGRESS NOTE Subjective: Overnight the patient indicated that she had a panic attack which she attributed to dyspnea. She states that this resolved when she returned to what is her current baseline respiratory status. She currently rates her respiratory status as a 7 out of 10 as if 10 is her baseline. Overnight denies fever, rigors, nausea, vomiting, wheeze, abdominal pain, chest pain. She states which she has occasional cough which was productive of yellow sputum however it is clearing up. I explained to the patient her current medical condition and plan of care and I have answered all of her questions Objective: General: -Alert -No acute distress -No dyspnea -No tachypnea -Morbidly obese Heart: -Regular rate -Regular rhythm -No murmurs -No gallops -No rubs Lungs: -Scant bilateral wheeze -No rhonchi -No rales -Distant breath sounds bilaterally Abdomen: -Normal bowel sounds in all four quadrants -No rebound -No guarding -No tenderness Extremities: -2/4 pulse in all four extremities -No clubbing -No cyanosis -No edema Additional Details / Additional Findings / Exceptions / Miscellaneous: Heart rate 102 bpm, respirations 25, 94% on 30 L with FiO2 80%, AST 84, ALT 82, alkaline phosphatase 172 Assessment / Plan: COVID-19 pneumonia. Proventil HFA: 90 mcg/spray: 2 puffs 4 times daily plus Solu-Medrol 20 mg IV every 6 hours plus doxycycline 100 mg p.o. twice daily. Patient status post treatment with remdesivir. Incentive spirometer to be used 10 times hourly while awake Asthma/COPD. Solu-Medrol 20 mg IV every 6 hours plus Dulera 2 puffs twice daily plus singular 10 mg p.o. nightly Erythrocytosis. Will monitor hemoglobin levels intermittently Transaminitis. This may be sequelae of COVID-19 infection. Will monitor LFTs periodically with CMP Obesity. Patient becomes regarding left eye modification Hypothyroidism. Synthroid 125 mg p.o. daily Hypertension. Cozaar 100 mg p.o. daily plus hydralazine 100 mg p.o. every 8 hours Fibromyalgia History migraine History of subarachnoid hemorrhage/cerebral aneurysm, status post coiling GERD. Protonix 40 mg p.o. daily Osteoarthritis Depression. Amitriptyline 100 mg p.o. nightly Seasonal allergies Diverticulosis Hyperlipidemia Hepatic steatosis DVT prophylaxis. Lovenox 40 mg subcutaneously twice daily Disposition: END OF DOCTOR EMAMIS PROGRESS NOTE
[2021-02-26] MEDS: Doxycycline Monohydrate 100 MG Cap PO SCH ×2 (09:34→22:04)
[2021-02-26] MEDS: Losartan 50 MG Tab PO SCH (09:34)
[2021-02-26] MEDS: Formoterol/Mometasone 200-5 MCG 8.8 GM Inhaler IH SCH ×2 (09:34→22:02)
[2021-02-26] MEDS: Albuterol 6.7 GM Inhaler INH SCH ×4 (09:35→22:03)
[2021-02-26] MEDS: Levothyroxine 125 MCG Tab PO SCH (09:35)
[2021-02-26] MEDS: Enoxaparin 40 MG/0.4 ML Syringe SUBCUT SCH ×2 (09:38→22:05)
[2021-02-26] MEDS: Sodium Chloride 0.9% 10 ML Syringe FLUSH PRN ×2 (12:19→17:11)
[2021-02-26] MEDS: Montelukast 10 MG Tab PO SCH (22:04)
[2021-02-26] MEDS: Amitriptyline 25 MG Tab PO SCH (22:05)
[2021-02-27] MEDS: Albuterol 6.7 GM Inhaler INH PRN (01:27)
[2021-02-27] MEDS: Pantoprazole 40 MG Tab.CR PO SCH (05:34)
[2021-02-27] MEDS: hydrALAZINE 25 MG Tab PO SCH ×3 (05:34→22:27)
[2021-02-27] MEDS: methylPREDNISolone Sodium Succinate 40 MG/1 ML SDV IVPUSH SCH ×3 (05:35→17:52)
--- NOTE | 2021-02-27 07:34 | PCM.SN.2 ---
- Free Text/Narrative Note: START OF DOCTOR EMAMIS PROGRESS NOTE Subjective: The patient complains of minor lower back pain. She Davida that her respiratory status is per much unchanged compared to my encounter with her on February 26, 2021. She currently rates her respiratory status as a 7 out of 10 at times her baseline. She denies fever, rigors, nausea, vomiting, cough, abdominal pain, chest pain. She states that she has occasional wheezing and still experiences profound dyspnea on exertion. I explained to the patient her current medical condition and plan of care and I have answered all of her questions Objective: General: -Alert -No acute distress -No dyspnea -No tachypnea -Morbidly obese Heart: -Regular rate -Regular rhythm -No murmurs -No gallops -No rubs Lungs: -Scant bilateral wheeze -No rhonchi -No rales -Distant breath sounds bilaterally Abdomen: -Normal bowel sounds in all four quadrants -No rebound -No guarding -No tenderness Extremities: -2/4 pulse in all four extremities -No clubbing -No cyanosis -No edema Additional Details / Additional Findings / Exceptions / Miscellaneous: Patient saturating 92% via nasal cannula at 30 L/min with FiO2 85 Assessment / Plan: COVID-19 pneumonia. Proventil HFA: 90 mcg/spray: 2 puffs 4 times daily plus Solu-Medrol 20 mg IV every 6 hours plus doxycycline 100 mg p.o. twice daily. Patient status post treatment with remdesivir. Incentive spirometer to be used 10 times hourly while awake Asthma/COPD. Solu-Medrol 20 mg IV every 6 hours plus Dulera 2 puffs twice daily plus singular 10 mg p.o. nightly Erythrocytosis. Will monitor hemoglobin levels intermittently Transaminitis. This may be sequelae of COVID-19 infection. Will monitor LFTs periodically with CMP Obesity. Patient becomes regarding left eye modification Hypothyroidism. Synthroid 125 mg p.o. daily Hypertension. Cozaar 100 mg p.o. daily plus hydralazine 100 mg p.o. every 8 hours Fibromyalgia History migraine History of subarachnoid hemorrhage/cerebral aneurysm, status post coiling GERD. Protonix 40 mg p.o. daily Osteoarthritis Depression. Amitriptyline 100 mg p.o. nightly Seasonal allergies Diverticulosis Hyperlipidemia Hepatic steatosis DVT prophylaxis. Lovenox 40 mg subcutaneously twice daily Disposition: END OF DOCTOR EMAMIS PROGRESS NOTE
[2021-02-27] MEDS: Levothyroxine 125 MCG Tab PO SCH (08:10)
[2021-02-27] MEDS: Losartan 50 MG Tab PO SCH (08:11)
[2021-02-27] MEDS: Enoxaparin 40 MG/0.4 ML Syringe SUBCUT SCH ×2 (08:11→22:30)
[2021-02-27] MEDS: Doxycycline Monohydrate 100 MG Cap PO SCH (08:11)
[2021-02-27] MEDS: Formoterol/Mometasone 200-5 MCG 8.8 GM Inhaler IH SCH ×2 (08:13→22:26)
[2021-02-27] MEDS: Albuterol 6.7 GM Inhaler INH SCH ×4 (08:14→22:30)
[2021-02-27] MEDS: Sodium Chloride 0.9% 10 ML Syringe FLUSH PRN ×2 (08:16→22:32)
[2021-02-27] MEDS ORDERED: Albuterol/Ipratropium 3.0-0.5 MG/3 ML Neb Soln NEB ONE (09:42)
[2021-02-27] MEDS ORDERED: Furosemide 40 MG/4 ML VIAL IVPUSH SCH (10:45)
[2021-02-27 12:03] LABS: ALLEN TEST POSITIVE; BASE EXCESS ARTERIAL -1 mmol/L ((-2)-(+3)); O2 DELIVERY DEVICE HI FLOW NASAL CANNU; O2 SATURATION ARTERIAL 91 % (95-100); PCO2 ARTERIAL 37 mmHg (35-45); PO2 ARTERIAL 56 mmHg (70-100)
--- NOTE | 2021-02-27 15:15 | CR ---
EXAMINATION: Chest 1V Frontal SEX: Female AGE: 55 years CLINICAL HISTORY: 55-year-old obese female with shortness of breath (SOB) hospitalized for "viral pneumonia" (initial chest x-ray 16 Feb 2021, without appreciable improvement on 23 February 2021 CXR, was interpreted as "groundglass opacities or multifocal pneumonia". Interpretation: Abnormal. No improvement since comparison films 23 February and 16 February. Diffuse interstitial nodularity confirmed throughout both lung ruvalcaba. Clinical history of primary malignancy (endometrial carcinoma uterus), tuberculosis or septic emboli (drug use?). Patchy bibasilar consolidation (left greater than right) more typical of atelectasis and/or alveolar infiltrate. Poor inspiration. Normal cardiac silhouette without obvious vascular congestion, cephalization of flow, alveolar edema or dependent pleural fluid accumulation i.e. no pleural effusions. No dominant lung mass or obvious hilar/mediastinal lymphadenopathy. No pneumothorax or pneumomediastinum. Midline tracheobronchial airway unremarkable. Surgical clips gallbladder fossa RUQ.
[2021-02-27] MEDS ORDERED: Iopamidol 755 Mg/ML 100 ML Bottle IVPUSH ONE (15:24)
--- NOTE | 2021-02-27 17:19 | CT ---
EXAMINATION: Chest Abdomen Pelvis w Cont SEX: Female AGE: 55 years CLINICAL HISTORY: 55-year-old obese female who is "day 11 hospitalization" for COVID19 pneumonia with minimal improvement (on high flow oxygen). Recent chest x-ray shows "nodularity" raising concern for malignancy. SOB. Scan technique: Volume acquisition of data from the chest, abdomen and pelvis obtained with CT PE protocol i.e. during the intravenous administration of nonionic Isovue 370 contrast at 5 cc/s via injector while patient was lying supine on the Siemens multi slice scanner [place], [place]. All data archived in the PACS system for storage, reformatting axial/sagittal/coronal planes and study. Respiratory motion artifact. Interpretation: 1. Cardiac silhouette accentuated by poor inspiratory effort. No pericardial effusion, alveolar edema or pleural effusion. 2. *Extensive "groundglass" interstitial infiltrates throughout both lung ruvalcaba (tiny intraluminal filling defects or thrombus peripheral pulmonary artery circulation RLL consistent with vasculitis). No significant underlying lymphadenopathy. 3. No suspicious lung mass. 4. Cholecystectomy (surgical clips RUQ). Liver, stomach, spleen, pancreas and adrenal glands unremarkable. 5. Normal reniform size, axis and configuration. Solitary tiny lower midpole cyst left kidney. No nephrolithiasis or signs of obstructive uropathy. Unenhanced urinary bladder unremarkable. 6. Normal midline uterus. No adnexal mass lesion. Sigmoid diverticulosis without associated inflammation. 7. No pelvic or abdominal mass lesion. No pelvic, mesenteric or retroperitoneal lymphadenopathy. No inflammatory "dirty" peritoneal fat, signs of mechanical bowel obstruction, ascites or free intraperitoneal air. Extensive perianal/pelvic varices. 8. Chronic multilevel disc disease and arthritis of the spine. CONCLUSION: Abnormal CT chest most consistent with severe COVID19 viral pneumonia. No sign of primary or metastatic malignancy chest/abdomen/pelvis. Cholecystectomy.
[2021-02-27] MEDS: Amitriptyline 25 MG Tab PO SCH (22:29)
[2021-02-27] MEDS: Montelukast 10 MG Tab PO SCH (22:29)
[2021-02-27] MEDS ORDERED: Furosemide 40 MG/4 ML VIAL IVPUSH ONE (23:00)
[2021-02-28] MEDS: Albuterol/Ipratropium 3.0-0.5 MG/3 ML Neb Soln NEB SCH ×2 (00:21→06:10)
[2021-02-28] MEDS: Sodium Chloride 0.9% 10 ML Syringe FLUSH PRN ×3 (00:21→08:27)
[2021-02-28] MEDS: methylPREDNISolone Sodium Succinate 40 MG/1 ML SDV IVPUSH SCH ×2 (00:21→06:12)
[2021-02-28] MEDS: Albuterol/Ipratropium 3.0-0.5 MG/3 ML Neb Soln NEB PRN ×2 (03:42→08:42)
[2021-02-28] MEDS: hydrALAZINE 25 MG Tab PO SCH (06:11)
[2021-02-28] MEDS: Pantoprazole 40 MG Tab.CR PO SCH (06:12)
--- NOTE | 2021-02-28 07:55 | PCM.SN.2 ---
- Free Text/Narrative Note: START OF DOCTOR EMAMIS PROGRESS NOTE Subjective: The patient indicates that her DuoNeb treatments have been improving her respiratory status. She actually rates her respiratory status as an 8 out of 10 at times her baseline and this has increased from her usual response of 7. Overnight she denies fever, rigors, nausea, vomiting, cough, wheeze, abdominal pain, chest pain. I explained to the patient her current medical condition and plan of care and I have answered all of her questions Objective: General: -Alert -No acute distress -No dyspnea -No tachypnea -Morbidly obese Heart: -Regular rate -Regular rhythm -No murmurs -No gallops -No rubs Lungs: -Scant bilateral wheeze -No rhonchi -No rales -Distant breath sounds bilaterally Abdomen: -Normal bowel sounds in all four quadrants -No rebound -No guarding -No tenderness Extremities: -2/4 pulse in all four extremities -No clubbing -No cyanosis -No edema Additional Details / Additional Findings / Exceptions / Miscellaneous: Pertinent Laboratory Results / Pertinent Radiology Results / Pertinent Diagnostic Results / Pertinent Vital Signs: Blood pressure 145/71, 78% on high flow nasal cannula 30 L/min with FiO2 87% Assessment / Plan: COVID-19 pneumonia. DuoNeb every 4 hours plus Solu-Medrol 20 mg IV every 6 hours. Patient status post treatment with remdesivir. Incentive spirometer to be used 10 times hourly while awake Asthma/COPD. Solu-Medrol 20 mg IV every 6 hours plus Dulera 2 puffs twice daily plus singular 10 mg p.o. nightly Erythrocytosis. Will monitor hemoglobin levels intermittently Degenerative disc disease Transaminitis. This may be sequelae of COVID-19 infection. Will monitor LFTs periodically with CMP Obesity. Patient becomes regarding left eye modification Hypothyroidism. Synthroid 125 mg p.o. daily Hypertension. Cozaar 100 mg p.o. daily plus hydralazine 100 mg p.o. every 8 hours Fibromyalgia History migraine History of subarachnoid hemorrhage/cerebral aneurysm, status post coiling GERD. Protonix 40 mg p.o. daily Osteoarthritis Depression. Amitriptyline 100 mg p.o. nightly Seasonal allergies Diverticulosis Hyperlipidemia Hepatic steatosis DVT prophylaxis. Lovenox 40 mg subcutaneously twice daily Disposition: END OF DOCTOR EMAMIS PROGRESS NOTE
[2021-02-28 08:20] VITALS: BP 137/82; PULSE 109
[2021-02-28] MEDS: Enoxaparin 40 MG/0.4 ML Syringe SUBCUT SCH (08:21)
[2021-02-28] MEDS: Losartan 50 MG Tab PO SCH (08:21)
[2021-02-28] MEDS: Levothyroxine 125 MCG Tab PO SCH (08:21)
[2021-02-28] MEDS: Formoterol/Mometasone 200-5 MCG 8.8 GM Inhaler IH SCH (08:23)
--- NOTE | 2021-02-28 09:04 | PCM.SN.2 ---
- Free Text/Narrative Note: START OF DOCTOR EMAMIS DISCHARGE SUMMARY Date of Admission: February 16, 2021 Date of transfer to [id number]: 9:02 AM on February 28, 2021 Primary Diagnosis: COVID-19 pneumonia Secondary Diagnosis: Asthma/COPD Erythrocytosis Transaminitis, likely sequelae of COVID-19 infection Obesity Hypothyroidism Hypertension Fibromyalgia History of migraine History of subarachnoid hemorrhage/cerebral aneurysm, status post coiling GERD Osteoarthritis Depression Seasonal allergies Diverticulosis Hyperlipidemia Hepatic steatosis Degenerative disc disease Consultations: None Condition on transfer: Fair Disposition: The patient will be transferred to [facility] in [facility] care of Dr. Mayfield Discharge Medications: Flonase: 50 mcg/spray: 1 puff in each nare daily Amitriptyline 100 mg p.o. nightly Protonix 40 mg p.o. daily Singular 10 mg p.o. nightly Solu-Medrol 20 mg IV every 6 hours Cozaar 100 mg p.o. daily Synthroid 125 mg p.o. daily Hydralazine 100 mg p.o. every 8 hours Proventil HFA: 90 mg/spray: 2 puffs every 4 hours while awake Advair Diskus: 500/50 mc inhalation twice daily Lovenox 40 mg subcutaneously every 12 hours for DVT prophylaxis END OF DOCTOR EMAMIS DISCHARGE SUMMARY
== END 2021-02-28 12:35 | DRG 177 ==
LOC: DL.ED 00:56 → DL.MS 02:19 → UNDODISIN 02-28 10:30
PROVIDERS: ADMIT Internal Medicine; ATTEND Internal Medicine
PROC: XW033E5 Introduction of Remdesivir Anti-infective into Peripheral Vein, Percutaneous Approach, New Technology Group 5 (ICD-10-PCS; principal; 2021-02-16)
DX: U07.1 COVID-19 (principal); J12.82 Pneumonia due to coronavirus disease 2019; J96.01 Acute respiratory failure with hypoxia; J45.901 Unspecified asthma with (acute) exacerbation; E03.9 Hypothyroidism, unspecified; E78.5 Hyperlipidemia, unspecified; E66.9 Obesity, unspecified; H54.7 Unspecified visual loss; I10 Essential (primary) hypertension; K52.9 Noninfective gastroenteritis and colitis, unspecified; N39.3 Stress incontinence (female) (male); M19.90 Unspecified osteoarthritis, unspecified site; M79.7 Fibromyalgia; G43.909 Migraine, unspecified, not intractable, without status migrainosus; R74.01 Elevation of levels of liver transaminase levels; K76.0 Fatty (change of) liver, not elsewhere classified; F32.9 Major depressive disorder, single episode, unspecified; K21.9 Gastro-esophageal reflux disease without esophagitis; Z90.49 Acquired absence of other specified parts of digestive tract; Z98.890 Other specified postprocedural states; Z88.6 Allergy status to analgesic agent; Z91.011 Allergy to milk products; Z88.1 Allergy status to other antibiotic agents; K57.90 Diverticulosis of intestine, part unspecified, without perforation or abscess without bleeding; D75.1 Secondary polycythemia
CPT/HCPCS: 36415; 36600; 51702; 71045; 71260; 74177; 80053; 82728; 82803; 83036; 83605; 83735; 83880; 84145; 84484; 85025; 85027; 85379; 85610; 86140; 87040; 93005; 94640; 94660; 94667; 94668; 94762; 96374; 99285-25; A9270-GY; J1650; J1940; J2920; J2930; J7030; J7050; J7620-GY; U0002